=== PATIENT | male | born 1985 | race Native Hawaiian/Other Pacific Islander ===

== ENCOUNTER 2021-07-15 20:05 | Emergency (ER) | payer BC ==
[2021-07-15] MEDS ORDERED: IBUPROFEN 600 MG TAB PO STA (20:28)
[2021-07-15] MEDS ORDERED: ACETAMINOPHEN TAB 500 MG TAB PO STA (20:28)
--- NOTE | 2021-07-15 20:49 | ED ---
General Adult HPI - General Chief complaint: Fever Stated complaint: Fever 105, Body Achs Time Seen by Provider: 07/15/21 22:00 Source: patient, RN notes reviewed Mode of arrival: ambulatory - History of Present Illness Initial comments: Well-appearing 36-year-old male presents to the emergency room with complaints of body aches fevers, nausea. He has not been vaccinated against coronavirus. He has no medical history no medicines on a daily basis. He states his symptoms started today -: days(s) (1) Severity scale (1-10): 6 Quality: aching Associated Symptoms: fever/chills, malaise, nausea/vomiting, other (body aches) - Related Data Allergies Allergy/AdvReac Type Severity Reaction Status Date / Time No Known Allergies Allergy Verified 07/15/21 20:23 Review of Systems ROS Statement: Those systems with pertinent positive or pertinent negative responses have been documented in the HPI. ROS Other: All systems not noted in ROS Statement are negative. Past Medical History Past Medical History: No Reported History History of Any Multi-Drug Resistant Organisms: None Reported Past Surgical History: No Surgical Hx Reported Past Psychological History: No Psychological Hx Reported Smoking Status: Vaper Past Alcohol Use History: None Reported Past Drug Use History: None Reported General Exam General appearance: alert, in no apparent distress Head exam: Present: atraumatic, normocephalic, normal inspection Eye exam: Present: normal appearance, EOMI. Absent: scleral icterus, conjunctival injection ENT exam: Present: normal exam, normal oropharynx, mucous membranes moist Neck exam: Present: full ROM Respiratory exam: Present: normal lung sounds bilaterally. Absent: respiratory distress, wheezes, rales, rhonchi, stridor Cardiovascular Exam: Present: tachycardia Back exam: Present: normal inspection, full ROM. Absent: rash noted Neurological exam: Present: alert, oriented X3, normal gait Psychiatric exam: Present: normal affect, normal mood Skin exam: Present: warm, dry, normal color. Absent: cyanosis, diaphoretic Course Vital Signs 07/15/21 07/15/21 07/15/21 20:19 21:13 23:42 Temperature 103.2 F H 102.9 F H 99.7 F H Pulse Rate 131 H 121 H 100 Respiratory 18 20 Rate Blood Pressure 142/70 134/72 O2 Sat by Pulse 98 97 Oximetry Medical Decision Making - Medical Decision Making 36-year-old male presents with complaints of body aches fevers, nausea. He has not been vaccinated against coronavirus. He is positive for coronavirus today. He is febrile in the emergency of 103.2 with a heart rate of 131. He does meet criteria for monoclonal antibody infusion and is agreeable to the infusion. He tolerated the infusion without any difficulty. Patient was given Tylenol Motrin and IV fluids in the emergency room and is feeling better. Vital signs are improved. He was discharged home and directed to self quarantine for 10 days from symptom onset. Return to the emergency room for any new or worsening symptoms. My attending is Dr. Valera. - Lab Data Lab Results 07/15/21 Range/Units 20:24 Coronavirus (PCR) Detected A (Not Detectd) Disposition Clinical Impression: COVID-19 Disposition: HOME SELF-CARE Instructions (If sedation given, give patient instructions): Coronavirus Disease 2019 (COVID-19), Fever in Adults (ED) Additional Instructions: Take Tylenol and/or Motrin as needed for any body aches or fevers. Increase your fluid intake. You can take vitamin C, vitamin D and zinc to improve your immune health. Return to the emergency room with any new or concerning symptoms. Is patient prescribed a controlled substance at d/c from ED?: No Referrals: Mary Kay Guzman MD [Primary Care Provider] - 1-2 days
[2021-07-15] MEDS ORDERED: SODIUM CHLORIDE 0.9% 1,000 ML IV ONE (21:21)
[2021-07-15] MEDS ORDERED: SODIUM CHLORIDE 0.9% 50 ML IVPB ONE (22:00)
[2021-07-15] MEDS ORDERED: SOTROVIMAB (EUA) 500 MG in SODIUM CHLORIDE 0.9% 100 ML IVPB ONE (22:00)
[2021-07-15 23:43] VITALS: BP 134/72; PULSE 100; RESP 20; TEMP 99.7
== END 2021-07-15 23:43 | disposition home or self-care (01) ==
LOC: EC 20:05
DX: U07.1 COVID-19 (principal); F17.290 Nicotine dependence, other tobacco product, uncomplicated
CPT/HCPCS: 87635; 99283; Q0247

== ENCOUNTER 2022-09-30 13:25 | Emergency (ER) | payer BC ==
[2022-09-30 13:33] VITALS: RESP 18; TEMP 98
[2022-09-30] MEDS ORDERED: SODIUM CHLORIDE 0.9% 1,000 ML IV STA (13:38)
--- NOTE | 2022-09-30 13:40 | ED ---
Neuro HPI - General Chief Complaint: Neuro Symptoms/Deficit Stated Complaint: L Sided Numbness Time Seen by Provider: 09/30/22 13:29 Source: patient, old records reviewed Mode of arrival: EMS Limitations: no limitations - History of Present Illness Is the patient presenting with stroke symptoms?: Yes -: minutes(s) Initial Comments: This is a 37-year-old male to the emergency department for evaluation. Patient is a smoker with no other medical history takes no medications. Patient presents today for evaluation of left-sided numbness tingling weakness stability neurological findings of severe weakness. No prior history of similar. Symptoms were gradual then what appeared to be sudden onset and resolved on EMS transport. Patient currently has no complaints no headache chest pain or shortness of breath. Patient states he was sitting is cardiologically of left eye time and facial paresthesia weakness and numbness EMS was called and again they arrived, blood patient to the ER patient symptoms resolved upon arrival to the hospital patient also noted to have slurred speech Location: speech, left face, dysarthria History of same: Yes Place: work Severity: moderate Quality: weak, tingling Improves With: time Worsens With: none Context: gradual onset, sudden onset Associated Symptoms: denies other symptoms Treatments Prior to Arrival: none - Related Data Home Medications: Home Medications Medication Instructions Recorded Confirmed No Known Home Medications 09/30/22 09/30/22 Allergies/Adverse Reactions: Allergies Allergy/AdvReac Type Severity Reaction Status Date / Time No Known Allergies Allergy Verified 09/30/22 14:51 Review of Systems ROS Statement: Those systems with pertinent positive or pertinent negative responses have been documented in the HPI. ROS Other: All systems not noted in ROS Statement are negative. General Exam Limitations: no limitations Stroke MDM - Lab Data Result diagrams: 09/30/22 13:45 09/30/22 13:45 Lab Results 09/30/22 09/30/22 09/30/22 Range/Units 13:45 13:45 13:45 WBC 6.7 (3.8-10.6) k/uL RBC 5.22 (4.30-5.90) m/uL Hgb 14.9 (13.0-17.5) gm/dL Hct 44.4 (39.0-53.0) % MCV 84.9 (80.0-100.0) fL MCH 28.5 (25.0-35.0) pg MCHC 33.5 (31.0-37.0) g/dL RDW 12.3 (11.5-15.5) % Plt Count 231 (150-450) k/uL MPV 8.0 Neutrophils % 64 % Lymphocytes % 24 % Monocytes % 6 % Eosinophils % 3 % Basophils % 1 % Neutrophils # 4.3 (1.3-7.7) k/uL Lymphocytes # 1.6 (1.0-4.8) k/uL Monocytes # 0.4 (0-1.0) k/uL Eosinophils # 0.2 (0-0.7) k/uL Basophils # 0.0 (0-0.2) k/uL PT 10.4 (9.0-12.0) sec INR 1.0 (<1.2) APTT 22.7 (22.0-30.0) sec Sodium 139 (137-145) mmol/L Potassium 4.2 (3.5-5.1) mmol/L Chloride 101 (98-107) mmol/L Carbon Dioxide 29 (22-30) mmol/L Anion Gap 9 mmol/L BUN 17 (9-20) mg/dL Creatinine 0.88 (0.66-1.25) mg/dL Est GFR (CKD-EPI)AfAm >90 (>60 ml/min/1.73 sqM) Est GFR (CKD-EPI)NonAf >90 (>60 ml/min/1.73 sqM) Glucose 96 (74-99) mg/dL Calcium 9.1 (8.4-10.2) mg/dL Total Bilirubin 0.4 (0.2-1.3) mg/dL AST 41 (17-59) U/L ALT 61 H (4-49) U/L Alkaline Phosphatase 61 (38-126) U/L Creatine Kinase 294 H (55-170) U/L Troponin I (0.000-0.034) ng/mL Total Protein 7.6 (6.3-8.2) g/dL Albumin 4.3 (3.5-5.0) g/dL 09/30/22 Range/Units 13:45 WBC (3.8-10.6) k/uL RBC (4.30-5.90) m/uL Hgb (13.0-17.5) gm/dL Hct (39.0-53.0) % MCV (80.0-100.0) fL MCH (25.0-35.0) pg MCHC (31.0-37.0) g/dL RDW (11.5-15.5) % Plt Count (150-450) k/uL MPV Neutrophils % % Lymphocytes % % Monocytes % % Eosinophils % % Basophils % % Neutrophils # (1.3-7.7) k/uL Lymphocytes # (1.0-4.8) k/uL Monocytes # (0-1.0) k/uL Eosinophils # (0-0.7) k/uL Basophils # (0-0.2) k/uL PT (9.0-12.0) sec INR (<1.2) APTT (22.0-30.0) sec Sodium (137-145) mmol/L Potassium (3.5-5.1) mmol/L Chloride (98-107) mmol/L Carbon Dioxide (22-30) mmol/L Anion Gap mmol/L BUN (9-20) mg/dL Creatinine (0.66-1.25) mg/dL Est GFR (CKD-EPI)AfAm (>60 ml/min/1.73 sqM) Est GFR (CKD-EPI)NonAf (>60 ml/min/1.73 sqM) Glucose (74-99) mg/dL Calcium (8.4-10.2) mg/dL Total Bilirubin (0.2-1.3) mg/dL AST (17-59) U/L ALT (4-49) U/L Alkaline Phosphatase (38-126) U/L Creatine Kinase (55-170) U/L Troponin I <0.012 (0.000-0.034) ng/mL Total Protein (6.3-8.2) g/dL Albumin (3.5-5.0) g/dL - NIH Stroke Scale 1a. Level of Consciousness: (0) alert 1b. LOC Questions: (0) answers correctly 1c. LOC Commands: (0) performs tasks correctly 2. Best Gaze: (0) normal 3. Visual: (0) no visual loss 4. Facial Palsy: (0) normal symmetrical movement 5a. Motor Arm Left: (0) no drift 5b. Motor Arm Right: (0) no drift 6a. Motor Leg Left: (0) no drift 6b. Motor Leg Right: (0) no drift 7. Limb Ataxia: (0) absent 8. Sensory: (0) normal 9. Best Language: (0) no aphasia 10. Dysarthria: (0) normal 11. Extinction/Inattention: (0) no abnormality - Thrombolytic Inclusion/Exclusion Thrombolytic Exclusion Criteria: Onset of Symptoms Unknown (Symptoms resolved) Thrombolytic Inclusion Criteria: Symptom Onset < 4.5 h - Medical Decision Making 37 male to the emergency department for evaluation of neurological findings. Symptoms resolved upon arrival to ER remain resolved in the emergency room fitting TIA description. Patient will follow-up as an outpatient for further evaluation and treatment - Radiology Data Radiology results: report reviewed (CTA CTA had neck does show hypoplastic anterior segment), image reviewed - EKG Data -: EKG Interpreted by Me (EKG shows sinus 75 VA 108 QRS 116 QTC 441) Past Medical History Past Medical History: No Reported History History of Any Multi-Drug Resistant Organisms: None Reported Past Surgical History: No Surgical Hx Reported Additional Past Surgical History / Comment(s): Wisom teeth extraction, Past Psychological History: No Psychological Hx Reported Smoking Status: Current every day smoker, Vaper Past Alcohol Use History: Rare Past Drug Use History: None Reported Course Vital Signs 09/30/22 09/30/22 13:28 16:01 Temperature 98.0 F Pulse Rate 65 67 Respiratory 18 18 Rate Blood Pressure 132/82 122/82 O2 Sat by Pulse 100 99 Oximetry - Reevaluation(s) Reevaluation #1: 09/30/22 20:02 Medical records reviewed Reevaluation #2: 09/30/22 20:03 A she remains asymptomatic felt ER stay 09/30/22 20:03 Patient remains asymptomatic throughout ER stay Reevaluation #3: 09/30/22 20:03 Patient informed results and questions answered Reevaluation #4: 09/30/22 20:03 Was pt. sent in by a medical professional or institution? @ -no Did you speak to anyone other than the patient for history? @ -no Did you review nursing and triage notes? @ -agree Were old charts reviewed? @ -no Differential Diagnosis? @ -neuro deficit,ams EKG interpreted by me (3pts min.)? @ -yes X-rays interpreted by me (1pt min.)? @ -no CT interpreted by me (1pt min.)? @ -no U/S interpreted by me (1pt. min.)? @ -no What testing was considered but not performed? (CT, X-rays, U/S, labs)? Why? @ -no What meds were considered but not given? Why? @ -no Did you discuss the management of the patient with other professionals? @ -no Did you reconcile home meds? @ -yes Was smoking cessation discussed for >3mins.? @ -yes Was critical care preformed (if so, how long)? @ -no Were there social determinants of health that impacted care today? How? (Homelessness, low income, unemployed, alcoholism, drug addiction, transportation, low edu. Level, literacy, decrease access to med. care, shelter, rehab)? @ -no Was there de-escalation of care discussed even if they declined? (Discuss DNR or withdrawal of care, Hospice)? @ -no What co-morbidities impacted this encounter? (DM, HTN, Smoking, COPD, CAD, Cancer, CVA,, sleep apnea, morbid obesity) @ -no Was patient admitted / discharged? @ -dc Undiagnosed new problem with uncertain prognosis? @ -no Drug Therapy requiring intensive monitoring for toxicity (Heparin, Nitro, Insulin, Cardizem)? @ -no Were any procedures done? @ -no Diagnosis/symptom? @ -TIA,CVA Acute, or Chronic, or Acute on Chronic? @ -acute Uncomplicated (without systemic symptoms) or Complicated (systemic symptoms)? @ -uncomplicated Side effects of treatment? @ -no Exacerbation, Progression, or Severe Exacerbation] @ -no Poses a threat to life or bodily function? @ -no Reevaluation #5: 09/30/22 20:03 Differential Altered Mental Status: Hypoglycemia, DKA, hypercapnia, ETOH, overdose, CO poisoning, trauma, myxedema coma, HTN encephalopathy, infection, encephalitis, psychosis, intercranial hemorrhage, hepatic encephalopathy, meningitis, CVA, this is not meant to be an all-inclusive list Disposition Clinical Impression: Transient cerebral ischemia Disposition: HOME SELF-CARE Condition: Good Instructions (If sedation given, give patient instructions): Transient Ischemic Attack (ED) Is patient prescribed a controlled substance at d/c from ED?: No Referrals: Mary Kay Guzman MD [Primary Care Provider] - 1-2 days Time of Disposition: 15:30
[2022-09-30 14:11] LABS: Partial Thromboplastin Time 22.7 sec (22.0-30.0); Prothrombin Time 10.4 sec (9.0-12.0)
[2022-09-30 14:17] LABS: Basophils % (A) 1 %; Eosinophils # (A) 0.2 k/uL (0-0.7); Eosinophils % (A) 3 %; HCT 44.4 % (39.0-53.0); HGB 14.9 gm/dL (13.0-17.5); Lymphocytes # (A) 1.6 k/uL (1.0-4.8); Lymphocytes % (A) 24 %; MCH 28.5 pg (25.0-35.0); MCHC 33.5 g/dL (31.0-37.0); MCV 84.9 fL (80.0-100.0); Monocytes # (A) 0.4 k/uL (0-1.0); Monocytes % (A) 6 %; Neutrophils # (A) 4.3 k/uL (1.3-7.7); Neutrophils % (A) 64 %; Platelet Count 231 k/uL (150-450); RBC 5.22 m/uL (4.30-5.90); RDW 12.3 % (11.5-15.5); WBC 6.7 k/uL (3.8-10.6)
[2022-09-30 14:23] LABS: ALT 61 U/L (4-49); AST 41 U/L (17-59); African American GFR (CKD) >90 (>60 ml/min/1.73 sqM); Albumin 4.3 g/dL (3.5-5.0); Alkaline Phosphatase 61 U/L (38-126); Anion Gap 9 mmol/L; Blood Urea Nitrogen 17 mg/dL (9-20); Calcium 9.1 mg/dL (8.4-10.2); Carbon Dioxide 29 mmol/L (22-30); Chloride 101 mmol/L (98-107); Creatine Kinase 294 U/L (55-170); Glucose 96 mg/dL (74-99); Non-African American GFR(CKD) >90 (>60 ml/min/1.73 sqM); Potassium 4.2 mmol/L (3.5-5.1); Sodium 139 mmol/L (137-145); Total Bilirubin 0.4 mg/dL (0.2-1.3); Total Protein 7.6 g/dL (6.3-8.2)
--- NOTE | 2022-09-30 14:59 | CT ---
EXAMINATION TYPE: CT brain wo con, CT angio head neck DATE OF EXAM: 09/30/2022 COMPARISON: None HISTORY: 37-year-old male neurologic deficit, acute, stroke suspected, left-sided facial numbness TECHNIQUE: Examination was done in axial plane without intravenous contrast. Coronal and sagittal r econstructions performed. Additional postcontrast scanning of the head and neck after administration of 65 mL Isovue 370 IV contrast. 3-D reconstructions generated on a dedicated independent workstation . CT DLP: 2138.2 mGycm Automated exposure control for dose reduction was used. FINDINGS: CT head: There is no evidence of acute intracranial hemorrhage, acute ischemic changes, mass, mass-effect, or extra-axial fluid collection. There is no effacement of cerebral sulci or basal subarachnoid cister ns. There is no hydrocephalus. There is no midline shift. Rachel-white matter distinction is preserv ed. Paranasal sinuses and mastoid air cells are well pneumatized. Orbits and globes are intact. CTA neck: Calcified mediastinal left hilar nodes as well as a calcified granuloma in the left midlung compatibl e with prior granulomatous disease. Conventional arch vessel branching anatomy. Both vertebral arteries are codominant and patent throughout the course. Conventional arch also branching anatomy. The bilateral common and internal carotid arteries are widely patent. CT HEAD: Both vertebral and basilar arteries are patent as is the remainder of the posterior circulation. The internal carotid arteries are patent. There is a hypoplastic A1 segment left anterior cerebral ar alvin. However, otherwise, the anterior circulation is patent. Dural venous sinuses are patent. No aneurysmal changes seen. IMPRESSION: 1. CT head: No acute intracranial abnormality seen. 2. CTA neck: Evidence of prior granulomatous disease. Widely patent vertebral and carotid arteries of the neck. 3. 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 Otherwise, no large vessel intracranial arterial occlusion, significant stenosis, or aneurysmal change is seen.
[2022-09-30 16:02] VITALS: BP 122/82; PULSE 67
== END 2022-09-30 16:02 | disposition home or self-care (01) ==
LOC: EC 13:25
DX: G45.9 Transient cerebral ischemic attack, unspecified (principal); F17.290 Nicotine dependence, other tobacco product, uncomplicated
CPT/HCPCS: 36415; 93005; 80053; 82550; 84484; 85025; 85610; 85730; 70496; 70450; 70498; 99285; 96360; Q9967

== ENCOUNTER 2022-10-08 13:01 | Observation (INO) | payer BC ==
[2022-10-08] MEDS ORDERED: SODIUM CHLORIDE 0.9% 500 ML 500 ML IV STA (13:39)
--- NOTE | 2022-10-08 13:45 | ED ---
General Adult HPI - General Chief complaint: Neuro Symptoms/Deficit Stated complaint: Left arm tingling Time Seen by Provider: 10/08/22 13:28 Source: patient, EMS, RN notes reviewed, old records reviewed Mode of arrival: EMS Limitations: no limitations - History of Present Illness Initial comments: Patient is a 37-year-old male who was recently diagnosed with a TIA last week presents emergency department today with similar symptoms. Symptoms all reso lved prior to arrival. Last week patient had difficulty speaking as well as left-sided facial and arm numbness. States today the same thing happened at approximately 11:45 AM. He was at work when he began having left-sided facial as well as left hand and forearm numbness. States he does not believe it went all the way up his left arm. States it resulted Presents emergency department for evaluation. Denies any other deficits or weakness. Denies any past medical history. Is due to follow-up with neurology but was trying to get into see him sooner. Studies in the emergency department for evaluation instead. Has no other acute complaints at this time. No history of hypertension or diabetes. 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 no other findings. Patient was offered admission at that time but elected for follow-up with neurology instead. Is due to follow with Dr. Mcallister. - Related Data Home Medications Medication Instructions Recorded Confirmed No Known Home Medications 09/30/22 10/08/22 Allergies Allergy/AdvReac Type Severity Reaction Status Date / Time No Known Allergies Allergy Verified 10/08/22 15:16 Review of Systems ROS Statement: Those systems with pertinent positive or pertinent negative responses have been documented in the HPI. Review of Systems: CONST: Denies fever EYES: Denies blurry vision ENT: Denies nasal congestion C/V: Denies Chest pain RESP: Denies shortness of breath GI: Denies abdominal pain : Denies dysuria SKIN: Denies rash. MSK: Denies joint pain. NEURO: Denies headache ROS Other: All systems not noted in ROS Statement are negative. Past Medical History Past Medical History: No Reported History History of Any Multi-Drug Resistant Organisms: None Reported Past Surgical History: No Surgical Hx Reported Additional Past Surgical History / Comment(s): Wisom teeth extraction, Past Psychological History: No Psychological Hx Reported Smoking Status: Current every day smoker, Vaper Past Alcohol Use History: Rare General Exam - General Exam Comments Initial Comments: General: Appears in no acute distress. HEAD: Normal with no signs of head trauma. EYES: PERRLA, EOMI, conjunctiva normal, no discharge. Pupils are 3 mm and equal bilaterally. ENT: Hearing grossly intact, normal oropharynx. RESPIRATORY: Clear breath sounds bilaterally. No wheezes, rales, or rhonchi. C/V: Regular rate and rhythm. S1 and S2 auscultated, no edema, peripheral pulses 2+ and intact throughout ABD: Abd is soft, nontender, nondistended EXT: Normal range of motion, no obvious deformity SKIN: No rashes or lesions observed on exposed skin. NEURO: Alert and oriented x 4. Cranial nerves II-XII intact. No focal sensory or strength deficits. NIH of 0. GCS of 15. He relates without difficulty. No acute deficits. Symptoms resolved. Limitations: no limitations Course Vital Signs 10/08/22 13:04 Temperature 98.9 F Pulse Rate 87 Respiratory 22 Rate Blood Pressure 155/89 O2 Sat by Pulse 98 Oximetry Medical Decision Making - Medical Decision Making Was pt. sent in by a medical professional or institution (, PA, SOLAR ELECTRIC INSTALLER, urgent care, hospital, or [place] health care facility...) When possible be specific @ -No Did you speak to anyone other than the patient for history (EMS, parent, family, police, friend...)? What history was obtained from this source @ -No Did you review nursing and triage notes (agree or disagree)? Why? @ -I reviewed and agree with nursing and triage notes Were old charts reviewed (outside hosp., previous admission, EMS record, old EKG, old radiological studies, urgent care reports/EKG's, [place] health care facility records)? Report findings @ -Old charts reviewed from 09/30/2022 Differential Diagnosis (chest pain, altered mental status, abdominal pain women, abdominal pain men, vaginal bleeding, weakness, fever, dyspnea, syncope, headache, dizziness, GI bleed, back pain, seizure, CVA, palpatations, mental health, musculoskeletal)? @ -Differential CVA Ischemic stroke, hemorrhagic stroke, brain tumor, atypical migraine, Wernicke's encephalopathy, seizure, multiple sclerosis, meningitis, encephalitis, hypoglycemia, Guillain-Echeverria, electrolytes disturbance, myasthenia gravis.... This is not meant to be an all-inclusive list EKG interpreted by me (3pts min.). @ -As above X-rays interpreted by me (1pt min.). @ -Chest x-rays reveals no obvious acute cardio pulmonary process. CT interpreted by me (1pt min.). @ -CT brain and CT angiogram the brain reveals no obvious acute process, unchanged from prior. U/S interpreted by me (1pt. min.). @ -None done What testing was considered but not performed or refused? (CT, X-rays, U/S, labs)? Why? @ -None What meds were considered but not given or refused? Why? @ -None Did you discuss the management of the patient with other professionals (pr ofessionals i.e. , PA, SOLAR ELECTRIC INSTALLER, lab, RT, psych nurse, social research assistant, web development intern, teacher, sea air land officer, director case management)? Give summary @ -No Was smoking cessation discussed for >3mins.? @ -No Was critical care preformed (if so, how long)? @ -No Were there social determinants of health that impacted care today? How? (Homelessness, low income, unemployed, alcoholism, drug addiction, transport ation, low edu. Level, literacy, decrease access to med. care, senior living, rehab)? @ -No Was there de-escalation of care discussed even if they declined (Discuss DNR or withdrawal of care, Hospice)? DNR status @ -No What co-morbidities impacted this encounter? (DM, HTN, Smoking, COPD, CAD, Cancer, CVA, ARF, Chemo, Hep., AIDS, mental health diagnosis, sleep apnea, morbid obesity)? @ -Prior TIA last week Was patient admitted / discharged? Hospital course, mention meds given and route, prescriptions, significant lab abnormalities, going to OR and other pertinent info. @ -Based on the patient's presentation and physical exam, the patient presents with resolved neurological symptoms. Had similar symptoms last week. Symptoms have all resolved at the time of my evaluation. NIH is currently 0. Not on blood thinners. Patient is not a TPA candidate as risks far outweigh the benefits at this point. He is asymptomatic, Therefore stroke activation was not made. However I did discuss with him and we will work him up for his TIA including CT imaging of the brain and laboratory studies. He was in agreement this plan. Vital signs within acceptable limits. Patient's imaging unremarkable and unchanged from the other day. Patient's labs are within acceptable limits. I did update the patient. He remains asymptomatic. NIH remained 0. We did discuss discharge versus admission, and as the patient is returning with symptoms for the second time in one week and is unable to follow up with a neurologist in a timely manner, he elected for observation admission for evaluation by neurology. I believe this is reasonable. I spoke with the admitting physician, Dr. Davalos was in agreement this plan. Patient was given 325 milligrams of aspirin. Neurology was consulted. Undiagnosed new problem with uncertain prognosis? @ -No Drug Therapy requiring intensive monitoring for toxicity (Heparin, Nitro, I nsulin, Cardizem)? @ -No Were any procedures done? @ -No Diagnosis/symptom? @ -TIA Acute, or Chronic, or Acute on Chronic? @ -Acute Uncomplicated (without systemic symptoms) or Complicated (systemic symptoms)? @ -Uncomplicated Side effects of treatment? @ -none Exacerbation, Progression, or Severe Exacerbation] @ -no Poses a threat to life or bodily function? @ -no - Lab Data Result diagrams: 10/08/22 14:04 10/08/22 14:04 Lab Results 10/08/22 10/08/22 10/08/22 Range/Units 14:04 14:04 14:04 WBC 6.6 (3.8-10.6) k/uL RBC 5.46 (4.30-5.90) m/uL Hgb 15.8 (13.0-17.5) gm/dL Hct 46.0 (39.0-53.0) % MCV 84.2 (80.0-100.0) fL MCH 29.0 (25.0-35.0) pg MCHC 34.4 (31.0-37.0) g/dL RDW 12.5 (11.5-15.5) % Plt Count 118 L (150-450) k/uL MPV 9.2 Neutrophils % 77 % Lymphocytes % 16 % Monocytes % 5 % Eosinophils % 1 % Basophils % 0 % Neutrophils # 5.1 (1.3-7.7) k/uL Lymphocytes # 1.0 (1.0-4.8) k/uL Monocytes # 0.3 (0-1.0) k/uL Eosinophils # 0.1 (0-0.7) k/uL Basophils # 0.0 (0-0.2) k/uL PT 10.2 (9.0-12.0) sec INR 1.0 (<1.2) APTT 19.0 L (22.0-30.0) sec Sodium (137-145) mmol/L Potassium (3.5-5.1) mmol/L Chloride (98-107) mmol/L Carbon Dioxide (22-30) mmol/L Anion Gap mmol/L BUN (9-20) mg/dL Creatinine (0.66-1.25) mg/dL Est GFR (CKD-EPI)AfAm (>60 ml/min/1.73 sqM) Est GFR (CKD-EPI)NonAf (>60 ml/min/1.73 sqM) Glucose (74-99) mg/dL Calcium (8.4-10.2) mg/dL Total Bilirubin (0.2-1.3) mg/dL AST (17-59) U/L ALT (4-49) U/L Alkaline Phosphatase (38-126) U/L Troponin I (0.000-0.034) ng/mL Total Protein (6.3-8.2) g/dL Albumin (3.5-5.0) g/dL Urine Color Colorless Urine Appearance Clear (Clear) Urine pH 7.0 (5.0-8.0) Ur Specific Michael 1.015 (1.001-1.035) Urine Protein Negative (Negative) Urine Glucose (UA) Negative (Negative) Urine Ketones Negative (Negative) Urine Blood Negative (Negative) Urine Nitrite Negative (Negative) Urine Bilirubin Negative (Negative) Urine Urobilinogen <2.0 (<2.0) mg/dL Ur Leukocyte Esterase Negative (Negative) Urine Opiates Screen Not Detected (NotDetected) Ur Oxycodone Screen Not Detected (NotDetected) Urine Methadone Screen Not Detected (NotDetected) Ur Propoxyphene Screen Not Detected (NotDetected) Ur Barbiturates Screen Not Detected (NotDetected) U Tricyclic Antidepress Not Detected (NotDetected) Ur Phencyclidine Scrn Not Detected (NotDetected) Ur Amphetamines Screen Not Detected (NotDetected) U Methamphetamines Scrn Not Detected (NotDetected) U Benzodiazepines Scrn Not Detected (NotDetected) Urine Cocaine Screen Not Detected (NotDetected) U Marijuana (THC) Screen Not Detected (NotDetected) 10/08/22 10/08/22 Range/Units 14:04 14:04 WBC (3.8-10.6) k/uL RBC (4.30-5.90) m/uL Hgb (13.0-17.5) gm/dL Hct (39.0-53.0) % MCV (80.0-100.0) fL MCH (25.0-35.0) pg MCHC (31.0-37.0) g/dL RDW (11.5-15.5) % Plt Count (150-450) k/uL MPV Neutrophils % % Lymphocytes % % Monocytes % % Eosinophils % % Basophils % % Neutrophils # (1.3-7.7) k/uL Lymphocytes # (1.0-4.8) k/uL Monocytes # (0-1.0) k/uL Eosinophils # (0-0.7) k/uL Basophils # (0-0.2) k/uL PT (9.0-12.0) sec INR (<1.2) APTT (22.0-30.0) sec Sodium 139 (137-145) mmol/L Potassium 3.9 (3.5-5.1) mmol/L Chloride 102 (98-107) mmol/L Carbon Dioxide 26 (22-30) mmol/L Anion Gap 11 mmol/L BUN 14 (9-20) mg/dL Creatinine 0.84 (0.66-1.25) mg/dL Est GFR (CKD-EPI)AfAm >90 (>60 ml/min/1.73 sqM) Est GFR (CKD-EPI)NonAf >90 (>60 ml/min/1.73 sqM) Glucose 93 (74-99) mg/dL Calcium 9.2 (8.4-10.2) mg/dL Total Bilirubin 0.4 (0.2-1.3) mg/dL AST 34 (17-59) U/L ALT 40 (4-49) U/L Alkaline Phosphatase 73 (38-126) U/L Troponin I <0.012 (0.000-0.034) ng/mL Total Protein 7.9 (6.3-8.2) g/dL Albumin 4.5 (3.5-5.0) g/dL Urine Color Urine Appearance (Clear) Urine pH (5.0-8.0) Ur Specific Michael (1.001-1.035) Urine Protein (Negative) Urine Glucose (UA) (Negative) Urine Ketones (Negative) Urine Blood (Negative) Urine Nitrite (Negative) Urine Bilirubin (Negative) Urine Urobilinogen (<2.0) mg/dL Ur Leukocyte Esterase (Negative) Urine Opiates Screen (NotDetected) Ur Oxycodone Screen (NotDetected) Urine Methadone Screen (NotDetected) Ur Propoxyphene Screen (NotDetected) Ur Barbiturates Screen (NotDetected) U Tricyclic Antidepress (NotDetected) Ur Phencyclidine Scrn (NotDetected) Ur Amphetamines Screen (NotDetected) U Methamphetamines Scrn (NotDetected) U Benzodiazepines Scrn (NotDetected) Urine Cocaine Screen (NotDetected) U Marijuana (THC) Screen (NotDetected) - EKG Data -: EKG Interpreted by Me EKG Comments: 12-lead Electrocardiogram Interpretation Note EKG was reviewed and interpreted by myself. 12-lead ECG performed at 1312 is interpreted by me as revealing normal sinus rhythm at a rate of 74 beats per minute. [place] is normal. MS interval is 129 ms, QRS duration is 112 ms, QTc is 416 ms.. There were no ST or T wave abnormalities to suggest myocardial ischemia or injury. R wave progression across the precordium was satisfactory. By my interpretation this EKG is non-diagnostic for acute ischemia. When compared with EKG from 09/30/2022, no significant change. Disposition Clinical Impression: TIA (transient ischemic attack) Disposition: ADMITTED IP TO THIS HOSP Condition: Stable Referrals: Mary Kay Guzman MD [Primary Care Provider] - 1-2 days Hansa Chiang MD [REFERRING] - (Office has referral and will contact you regarding an appointment. Schedule out to the end of November or beginning of December at this time. ) Time of Disposition: 15:45
[2022-10-08 14:44] LABS: ALT 40 U/L (4-49); AST 34 U/L (17-59); African American GFR (CKD) >90 (>60 ml/min/1.73 sqM); Albumin 4.5 g/dL (3.5-5.0); Alkaline Phosphatase 73 U/L (38-126); Anion Gap 11 mmol/L; Blood Urea Nitrogen 14 mg/dL (9-20); Calcium 9.2 mg/dL (8.4-10.2); Carbon Dioxide 26 mmol/L (22-30); Chloride 102 mmol/L (98-107); Glucose 93 mg/dL (74-99); Non-African American GFR(CKD) >90 (>60 ml/min/1.73 sqM); Potassium 3.9 mmol/L (3.5-5.1); Sodium 139 mmol/L (137-145); Total Bilirubin 0.4 mg/dL (0.2-1.3); Total Protein 7.9 g/dL (6.3-8.2)
--- NOTE | 2022-10-08 15:01 | CT ---
EXAMINATION TYPE: CT brain wo con DATE OF EXAM: 10/08/2022 COMPARISON: CT brain September 30, 2022 HISTORY: left side numbness, neuro deficit, acute, stoke suspected CT DLP: 1186.6 mGycm. Automated Exposure Control for Dose Reduction was Utilized. TECHNIQUE: CT scan of the head is performed without contrast. FINDINGS: There is no acute intracranial hemorrhage, mass effect, or midline shift identified. The ventricles and sulci are within normal limits in size. Rachel-white matter differentiation is maintain ed . The globes are intact and the visualized sinuses are clear. IMPRESSION: No acute intracranial hemorrhage, mass effect, or midline shift is seen. No significant change from recent prior CT.
[2022-10-08 15:07] LABS: Basophils % (A) 0 %; Eosinophils # (A) 0.1 k/uL (0-0.7); Eosinophils % (A) 1 %; HGB 15.8 gm/dL (13.0-17.5); Lymphocytes % (A) 16 %; MCHC 34.4 g/dL (31.0-37.0); MCV 84.2 fL (80.0-100.0); Mean Platelet Volume 9.2; Monocytes # (A) 0.3 k/uL (0-1.0); Monocytes % (A) 5 %; Neutrophils # (A) 5.1 k/uL (1.3-7.7); Neutrophils % (A) 77 %; Platelet Count 118 k/uL (150-450); RBC 5.46 m/uL (4.30-5.90); RDW 12.5 % (11.5-15.5); WBC 6.6 k/uL (3.8-10.6)
[2022-10-08 15:09] LABS: Prothrombin Time 10.2 sec (9.0-12.0)
[2022-10-08 15:24] LABS: Appearance,Urine Clear (Clear); Bilirubin,Urine Negative (Negative); Blood,Urine Negative (Negative); Color,Urine Colorless; Glucose,Urine (UA) Negative (Negative); Ketones,Urine Negative (Negative); Leukocyte Esterase,Urine Negative (Negative); Nitrite,Urine Negative (Negative); Protein,Urine Negative (Negative); Specific Gravity,Urine 1.015 (1.001-1.035); Urobilinogen,Urine <2.0 mg/dL (<2.0)
[2022-10-08 15:42] LABS: Amphetamine Screen,Urine Not Detected (NotDetected); Barbiturate Screen,Urine Not Detected (NotDetected); Benzodiazepines Screen,Urine Not Detected (NotDetected); Cocaine Screen,Urine Not Detected (NotDetected); Methadone Screen, Urine Not Detected (NotDetected); Opiate Screen,Urine Not Detected (NotDetected); Oxycodone Screen, Urine Not Detected (NotDetected); Phencyclidine Screen,Urine Not Detected (NotDetected); Tricyclic Antidepressant,Urine Not Detected (NotDetected); Urn Cannabinoid Scrn Not Detected (NotDetected)
--- NOTE | 2022-10-08 15:43 | CT ---
EXAMINATION TYPE: CT angio head neck DATE OF EXAM: 10/08/2022 HISTORY: left side numbness, neuro deficit, acute, stoke suspected COMPARISON: CTA approximately [address] DLP: 1114.8 mGycm. Automated Exposure Control for Dose Reduction was Utilized. TECHNIQUE: CTA scan of the head and neck is performed with IV Contrast, patient injected with 100 mL of Isovue 300, axial images are obtained, coronal and sagittal reformatted images are reviewed. 3D r econstructed images are created on an independent workstation and reviewed. FINDINGS: Carotid/Vascular Structures: Normal 3 vessel origin from the aortic arch. No significant plaque or st enosis. No significant plaque or stenosis along the common or internal carotid arteries bilaterally i ncluding at the level of bilateral carotid bulbs. Patent external carotid arteries bilaterally withou t significant plaque or stenosis. There are codominant vertebral arteries patent to the basilar junction. There is no significant focal stenosis or aneurysm in the posterior circulation. There are hypoplastic bilateral posterior communi cating arteries. Images of the anterior circulation show absent left A1 segment with filling of the l eft A2 segment due to patent anterior communicating artery. No aneurysm is seen. No focal stenosis is noted. Other: Incidental peripheral calcified nodule or benign granuloma left upper lobe axial image 8. IMPRESSION: No significant abnormality is seen. No significant change from patient's recent CTA stud y. NASCET criteria was used in interpretation of this exam?
--- NOTE | 2022-10-08 15:50 | XR ---
EXAMINATION TYPE: XR chest 2V DATE OF EXAM: 10/08/2022 COMPARISON: None HISTORY: 37-year-old male confusion and mental status TECHNIQUE: PA and lateral views FINDINGS: Heart normal size. Aorta and pulmonary vasculature are within normal limits. No consolidation or pleu ral effusion. IMPRESSION: No acute cardiopulmonary process.
[2022-10-08] MEDS ORDERED: ASPIRIN 325 MG TAB PO STA (15:59)
[2022-10-09] MEDS: ASPIRIN 325 MG TAB PO SCH (09:04)
[2022-10-09 10:01] LABS: Chol/HDL Ratio 4.13 Ratio; LDL Cholesterol,Calculated 96.5 mg/dL (0.0-131.0)
--- NOTE | 2022-10-09 10:05 | P.CNNES ---
History of Present Illness Consult date: 10/09/22 Requesting physician: Ervin Amin Reason for Consult: Recurrent TIA History of Present Illness: Patient is a 37-year-old right-handed male came to the hospital by ambulance yesterday at 1:01 PM for recurrent TIA. Patient states that he had his first TIA on 09/30/2022. He was at work, sitting at the lunch, watching video on his cell phone when he suddenly noticed tingling of the left facial region that extended to the left arm, mouth and he couldn't talk. He repositioned himself and the symptoms started to go away. He was able to talk to the point that he could speak to the operated on 911. His symptoms lasted for about 3 minutes and went away. He was evaluated in [facility], blood pressure was 132/82, underwent computed tomography scan of the head, CTA of head and neck, which were normal. He was recommended to see a neurologist as an outpatient. He was fine until he has recurrence of symptoms yesterday. Patient states that he was sitting in the toilet, got up to wash hands when he noticed numbness and tingling of the left hand, and facial region, felt he couldn't move the left caba d. He could talk this time however. The bad symptoms lasted for about 2 minutes, however the symptoms reappeared mainly involving the left hand. He got concerned therefore called the ambulance. He believes the symptoms in the left hand lasted for about 30 minutes. He denies any mental confusion, history of seizures, or any problem with balance. Patient denies any headaches after these events. No history of migraines. As per EMS flow sheet, patient was alert and oriented 4 complaining of left hand tingling. Patient states he experienced a similar event last week and was recommended to see a neurologist. However he has not been able to get in yet. Symptoms started at 11:50 AM. Patient stroke scale was negative. Vitals at the scene was blood pressure 158/76, pulse rate 99 and respirations 18 and saturation 100% and blood sugar 99. Blood pressure on arrival was 155/89. Blood test shows normal CBC, PT/PTT, normal CMP, UA and a urine drug screen. EKG shows sinus rhythm. Chest x-ray showed no acute process. CT head showed no acute intracranial hemorrhage, mass effect or midline shift. I personally reviewed CT head, agree with the findings. CTA of head and neck was normal, no change from CTA from 1 week prior study. 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 He denies any history of trauma, or any injury. No history of seizures. No family history of epilepsy. His dad does have diabetes. Patient states that he has done cocaine, very occasionally, but has not done cocaine for a month. He smoked about 2 packs per day for a few years, quit in 2011. He has been vaping nicotine every day for last 2 years. Review of Systems Constitutional: Denies chills, Denies fever Eyes: denies blurred vision, denies pain Ears: deny: decreased hearing, ear discharge Ears, nose, mouth and throat: Denies headache, Denies sore throat Cardiovascular: Denies chest pain, Denies shortness of breath Respiratory: Denies cough, Denies excessive sputum Gastrointestinal: Denies abdominal pain, Denies diarrhea, Denies nausea, Denies vomiting Musculoskeletal: Denies low back pain, Denies myalgias Integumentary: Denies pruritus, Denies rash Neurological: Reports as per HPI Psychiatric: Denies anxiety, Denies depression Endocrine: Denies fatigue, Denies weight change Hematologic/Lymphatic: Denies easy bleeding, Denies easy bruising Past Medical History Past Medical History: No Reported History History of Any Multi-Drug Resistant Organisms: None Reported Past Surgical History: No Surgical Hx Reported Additional Past Surgical History / Comment(s): Wisom teeth extraction, Past Psychological History: No Psychological Hx Reported Smoking Status: Current every day smoker, Vaper Past Alcohol Use History: Rare Past Drug Use History: None Reported Medications and Allergies Home Medications Medication Instructions Recorded Confirmed Type No Known Home Medications 09/30/22 10/08/22 History Allergies Allergy/AdvReac Type Severity Reaction Status Date / Time No Known Allergies Allergy Verified 10/08/22 15:16 Physical Examination - Vital Signs Vital Signs: Vital Signs Temp Pulse Pulse Resp BP BP Pulse Ox 10/09/22 02:00 98.2 F 73 14 128/73 99 10/08/22 21:00 81 16 128/55 99 10/08/22 20:00 96.4 F L 88 57 L 16 139/71 130/78 98 10/08/22 18:58 76 18 139/82 97 10/08/22 18:00 123/78 10/08/22 17:00 71 18 134/73 97 10/08/22 16:45 78 20 127/82 97 10/08/22 16:15 66 20 127/76 98 10/08/22 16:00 75 18 119/94 99 10/08/22 15:45 85 20 147/96 95 10/08/22 15:30 78 24 137/97 99 10/08/22 15:15 67 18 127/81 97 10/08/22 15:00 72 20 99 10/08/22 14:45 76 20 100 10/08/22 14:30 77 18 100 10/08/22 14:15 73 18 123/89 99 10/08/22 14:00 72 20 140/92 99 10/08/22 13:45 84 18 138/89 98 10/08/22 13:30 83 18 142/94 99 10/08/22 13:15 80 18 142/79 99 10/08/22 13:13 142/79 99 10/08/22 13:04 98.9 F 87 22 155/89 98 Intake and Output 10/08/22 10/09/22 10/09/22 22:59 06:59 14:59 Other: Voiding Method Toilet # Voids 1 2 Weight 104.326 kg Patient is a young male, very pleasant in no acute distress. Patient is alert awake oriented to time place and person. Speech and language functions are normal. Patient can name and repeat very well. No aphasia or dysarthria. Attention, concentration and fund of knowledge is adequate. On cranial nerve examination, pupils are equal, round and reacting to light, visual youssef are full on confrontation, with no neglect on double simultaneous stimulation. Extraocular muscles are intact with no nystagmus. Face is symmetric, tongue protrudes to the midline. Palatal elevation and sensation normal, hearing and shoulder shrug normal, facial sensation normal. On muscle strength testing, there is no pronator drift and the strength is normal in arms and legs distally and proximally. Deep tendon reflexes are symmetric 1 on all over and plantars downgoing. Sensory to touch is equal with no neglect on double simultaneous stimulation. Cerebellar function showed no ataxia for [id number] testing. No dysdiadochokinesia. No ataxia for [id number] testing on either side. Tone and bulk of muscles normal. Gait deferred.. On general examination, there is no carotid bruit or murmur, S1-S2 audible. Chest is clear on consultation. Abdomen is soft nontender. No organomegaly, bowel sounds present. Peripheral pulses are present. No edema. Results - Laboratory Findings CBC and BMP: 10/08/22 14:04 10/08/22 14:04 Abnormal Lab Findings: Abnormal Labs 10/08/22 10/08/22 14:04 14:04 Plt Count 118 L APTT 19.0 L Assessment and Plan Assessment: * Recurrent TIA mainly involving the left facial brachial region. * High blood pressure reading, rule out hypertension * Vapes * Previous history of substance use Plan: * MRI of the brain to evaluate for acute stroke * 2-D echo with bubble study, rule out PFO. * Patient has recurrent spells, rule out seizure, check EEG. * Fasting lipid panel, hemoglobin A1c * Agree with starting aspirin 325 mg daily. * Telemetric monitoring, rule out arrhythmia. * Optimize control of blood pressure. * Neurology will follow. Thank you for the consult.
--- NOTE | 2022-10-09 10:55 | MR ---
EXAMINATION TYPE: MR brain wo con DATE OF EXAM: 10/09/2022 COMPARISON: NONE HISTORY: Left side weakness, neuro deficit, tia/cva TECHNIQUE: T1-weighted sagittal, T2, FLAIR, and diffusion axial, and T2 coronal coronal views of the brain are submitted. FINDINGS: There is no evidence of acute ischemia. The ventricles, basal cisterns, and sulci overlying the conv exities are consistent with the patient's age. There is no mass effect. Small intermediate signal s een adjacent to the clivus corresponds with CT osseous structure may represent small intraosseous hem angioma. Craniocervical junction maintained. Sella turcica has a normal appearance. A prominent cisterna magna noted. Mild changes of chronic sinusitis. Orbits are symmetric. No cerebellopontine angle mass. IMPRESSION: 1. No acute intracranial process.
[2022-10-09] MEDS: LOSARTAN 25 MG TAB PO SCH (12:18)
--- NOTE | 2022-10-09 17:35 | P.HPIM ---
History of Present Illness H&P Date: 10/09/22 Donnie Monroy, is a 37-year-old male who presented to [facility] emergency room with a chief complaint of tingling sensation on the left side of his face he also had difficulty speaking and numbness extending to the left upper extremity symptoms lasted about 3 minutes patient was able to call 911 and he was brought in to [facility] emergency room. Patient had similar episodes with similar symptoms on 09/30/2022 he was evaluated in the emergency room also at that time. He was evaluated in the emergency room vital examination on presentation revealed a temperature of 98.9 pulse 87 respiration 22 blood pressure 155/89 pulse ox 98% on room air Laboratory data revealed a white blood count of 6.6 hemoglobin 15.8 platelet count 118 sodium 139 potassium 3.9 chloride 102 CO2 26 BUN 14 creatinine 0.84 Testing in the emergency room revealed computed tomography scan of the brain done in the emergency room revealed no acute intracranial hemorrhage or mass affect or midline shift. CT angiogram of the head and neck was done in the emergency room and revealed no significant abnormality. Patient was admitted to medical floor for further evaluation and treatment. N eurology consultation was requested Past Medical History Past Medical History: No Reported History History of Any Multi-Drug Resistant Organisms: None Reported Past Surgical History: No Surgical Hx Reported Additional Past Surgical History / Comment(s): Wisom teeth extraction, Past Psychological History: No Psychological Hx Reported Smoking Status: Current every day smoker, Vaper Past Alcohol Use History: Rare Past Drug Use History: None Reported Medications and Allergies Home Medications Medication Instructions Recorded Confirmed Type No Known Home Medications 09/30/22 10/08/22 History Allergies Allergy/AdvReac Type Severity Reaction Status Date / Time No Known Allergies Allergy Verified 10/08/22 15:16 Physical Exam Vitals: Vital Signs Temp Pulse Pulse Resp BP BP Pulse Ox 10/09/22 02:00 98.2 F 73 14 128/73 99 10/08/22 21:00 81 16 128/55 99 10/08/22 20:00 96.4 F L 88 57 L 16 139/71 130/78 98 10/08/22 18:58 76 18 139/82 97 10/08/22 18:00 123/78 10/08/22 17:00 71 18 134/73 97 10/08/22 16:45 78 20 127/82 97 10/08/22 16:15 66 20 127/76 98 10/08/22 16:00 75 18 119/94 99 10/08/22 15:45 85 20 147/96 95 10/08/22 15:30 78 24 137/97 99 10/08/22 15:15 67 18 127/81 97 10/08/22 15:00 72 20 99 10/08/22 14:45 76 20 100 10/08/22 14:30 77 18 100 10/08/22 14:15 73 18 123/89 99 10/08/22 14:00 72 20 140/92 99 10/08/22 13:45 84 18 138/89 98 10/08/22 13:30 83 18 142/94 99 10/08/22 13:15 80 18 142/79 99 10/08/22 13:13 142/79 99 10/08/22 13:04 98.9 F 87 22 155/89 98 Intake and Output 10/08/22 10/09/22 10/09/22 22:59 06:59 14:59 Other: Voiding Method Toilet # Voids 1 2 Weight 104.326 kg In general patient is alert and oriented x 3 in no distress HEENT head normocephalic and atraumatic Neck is supple no JVD no goiter no lymphadenopathy no carotid bruit Chest examination is clear to auscultation no crackles no wheezing Cardiac exam reveals regular heart sounds S1 and S2 no gallops no murmurs Abdomen is soft nontender no organomegaly with normal bowel sounds Extremity exam reveals no edema no cyanosis or clubbing Neurological examination reveals no gross focal deficits Results CBC & Chem 7: 10/08/22 14:04 10/08/22 14:04 Labs: Abnormal Lab Results - Last 24 Hours (Table) 10/08/22 10/08/22 Range/Units 14:04 14:04 Plt Count 118 L (150-450) k/uL APTT 19.0 L (22.0-30.0) sec Assessment and Plan Plan: Recurrent episodes of left facial Evidence of hypertension Underlying history of tobacco abuse currently using tapes Previous history of substance abuse At this time patient is admitted to telemetry floor Echo cardiogram ordered Patient started on aspirin 325 mg daily Losartan 25 mg added to her medication regimen will monitor blood pressure closely Will check lipid profile Neurology consultation Will follow closely
[2022-10-09] MEDS ORDERED: ACETAMINOPHEN TAB 325 MG TAB PO PRN (21:38)
--- NOTE | 2022-10-09 23:08 | EEG ---
DATE OF SERVICE: 10/09/2022 ELECTROENCEPHALOGRAM REPORT PREAMBLE: This is a 37-year-old male with recurrent TIA, rule out focal seizures. EEG FINDINGS: This is a 21-channel digital EEG recorded with video component, utilizing 10/20 international system with referential and bipolar montages. Background consists of well developed, well regulated moderate voltage activity in 10 hertz alpha, which is posterior dominant and reactive to eye opening and closing. Hyperventilation revealed no abnormalities. Photic driving response was seen with some flash frequencies. Drowsiness was seen with presence of bilaterally symmetric theta frequency rhythm. Some stage 2 sleep was seen with the presence of sleep spindles and vertex waves. No focal or generalized epileptiform activity was seen. EKG channel showed no obvious arrhythmia. IMPRESSION: This is a normal EEG during wakefulness, drowsiness, and stage 2 sleep. No focal, lateralized or epileptiform activity was seen. MMODL / IJN: [id number] / MTDD
--- NOTE | 2022-10-10 07:20 | CA ---
Transthoracic Echo Report Name: Donnie Monroy Age: 37 Gender: M : 1985 Exam Date: 10/09/2022 13:18 Exam Location: [place] [facility] Ht (in): 73 Wt (lb): 235 Ordering Physician: Gaby Davalos MD Attending/Referring Phys: Manager Of Security Jarrell Ellis RDCS Procedure CPT: Indications: tia Cardiac Hx: Technical Quality: Fair Contrast 1: Total Dose (mL): Contrast 2: Total Dose (mL): MEASUREMENTS (Male / Female) Normal Values 2D ECHO LV Diastolic Diameter PLAX 4.7 cm 4.2 - 5.9 / 3.9 - 5.3 cm LV Systolic Diameter PLAX 3.2 cm LV Fractional Shortening PLAX 31.2 % IVS Diastolic Thickness 1.3 cm 0.6 - 1.0 / 0.6 - 0.9 cm IVS Systolic Thickness 1.6 cm LVPW Diastolic Thickness 1.4 cm 0.6 - 1.0 / 0.6 - 0.9 cm LVPW Systolic Thickness 1.7 cm LV Relative Wall Thickness 0.6 RV Internal Dim ED PLAX 3.0 cm LVOT Diameter 1.9 cm LA Systolic Diameter LX 4.3 cm 3.0 - 4.0 / 2.7 - 3.8 cm LV Diastolic Volume MOD BP 108.4 cm??? 67 - 155 / 56 - 104 cm??? LV Systolic Volume MOD BP 39.6 cm??? 22 - 58 / 19 - 49 cm??? LV Ejection Fraction MOD BP 63.4 % >= 55 % LV Stroke Volume MOD BP 68.7 cm??? LV Diastolic Volume MOD 4C 114.8 cm??? LV Systolic Volume MOD 4C 39.3 cm??? LV Ejection Fraction MOD 4C 65.7 % LV Stroke Volume MOD 4C 75.5 cm??? LV Diastolic Length 4C 8.4 cm LV Systolic Length 4C 7.0 cm LV Diastolic Volume MOD 2C 96.0 cm??? LV Systolic Volume MOD 2C 40.2 cm??? LV Ejection Fraction MOD 2C 58.1 % LV Stroke Volume MOD 2C 55.8 cm??? LV Diastolic Length 2C 7.8 cm LV Systolic Length 2C 6.8 cm Ascending Aorta Diameter 2.7 cm M-MODE Aortic Root Diameter MM 3.6 cm LA Systolic Diameter MM 3.5 cm LA Ao Ratio MM 1.0 MV E Point Septal Separation 0.6 cm AV Cusp Separation MM 1.9 cm DOPPLER AV Peak Velocity 119.8 cm/s AV Peak Gradient 5.7 mmHg MV Deceleration [place] 312.6 cm/s??? Mitral E Point Velocity 62.7 cm/s Mitral A Point Velocity 44.6 cm/s Mitral E to A Ratio 1.4 MV Deceleration Time 200.5 ms MV E' Velocity 8.4 cm/s Mitral E to MV E' Ratio 7.5 TR Peak Velocity 173.3 cm/s TR Peak Gradient 12.0 mmHg Right Ventricular Systolic Press 22.0 mmHg PV Peak Velocity 108.5 cm/s PV Peak Gradient 4.7 mmHg FINDINGS Left Ventricle Left ventricular ejection fraction is estimated at 55-60 %. Mild to moderate left ventricular hypertrophy. Left ventricular cavity size normal. Normal left ventricular diastolic filling pattern. Normal left ventricular wall motion. Right Ventricle Normal right ventricular size and function. Right Atrium Normal right atrial size. Left Atrium Mild left atrial dilatation. Mitral Valve Structurally normal mitral valve. No mitral stenosis. Trace mitral regurgitation. Aortic Valve Trileaflet aortic valve. No aortic stenosis. No aortic regurgitation. Tricuspid Valve Mild tricuspid regurgitation.structurally normal tricuspid valve. Pulmonic Valve Trace pulmonic regurgitation. Pericardium Normal pericardium. No pericardial effusion. Aorta Mild aortic dilatation at the level of the sinuses of valsalva (root). CONCLUSIONS 1. Normal ventricular size and systolic function 2. Mild tricuspid regurgitation with trace mitral regurgitation Previewed by: Dr. Jayson Cowart MD (Electronically Signed) Final Date: 10 Oct 2022 07:19
[2022-10-10 08:22] VITALS: BP 125/88; PULSE 71; RESP 16; TEMP 97.9
[2022-10-10] MEDS: LOSARTAN 25 MG TAB PO SCH (08:57)
[2022-10-10] MEDS: ASPIRIN 325 MG TAB PO SCH (08:57)
--- NOTE | 2022-10-10 10:51 | P.DS ---
Providers Date of admission: 10/08/22 15:59 Expected date of discharge: 10/10/22 Attending physician: Gaby Davalos Consults: 10/08/22 15:59 Consult Physician Routine Consulting Provider: Donna Fung Consult Reason/Comments: recurrent TIA Do you want consulting provider notified?: Yes Primary care physician: Mary Kay Guzman [facility] Course: Discharge diagnosis Recurrent episodes of left facial Evidence of hypertension Underlying history of tobacco abuse currently using tapes Previous history of substance abuse Hospital course Donnie Monroy, is a 37-year-old male who presented to [facility] emergency room with a chief complaint of tingling sensation on the left side of his face he also had difficulty speaking and numbness extending to the left upper extremity symptoms lasted about 3 minutes patient was able to call 911 and he was brought in to [facility] emergency room. Patient had similar episodes with similar symptoms on 09/30/2022 he was evaluated in the emergency room also at that time. He was evaluated in the emergency room vital examination on presentation revealed a temperature of 98.9 pulse 87 respiration 22 blood pressure 155/89 pulse ox 98% on room air Laboratory data revealed a white blood count of 6.6 hemoglobin 15.8 platelet count 118 sodium 139 potassium 3.9 chloride 102 CO2 26 BUN 14 creatinine 0.84 Testing in the emergency room revealed computed tomography scan of the brain done in the emergency room revealed no acute intracranial hemorrhage or mass affect or midline shift. CT angiogram of the head and neck was done in the emergency room and revealed no significant abnormality. Patient was admitted to medical floor for further evaluation and treatment. Neurology consultation was requested On 10/11/2019 and oriented 3. Patient is very eager to be DC'd home. Patient was evaluated by neurology services. Recommendation of starting aspirin 325 daily. Patient did have MRI of brain completed showing no acute intracranial process. 2-D echo completed showing normal ventricular size and systolic function EF 55-60%.EEG completed showing normal EEG. Current vital signs temp 97.9, heart rate 71, respiratory rate 16, blood pressure 135/80 with pulse. Patient was started on Cozaar for elevated blood pressure. Neurology to assess patient bedside prior to discharge. Nursing staff aware. Patient to follow-up PCP for further management Patient Condition at Discharge: Stable Plan - Discharge Summary New Discharge Prescriptions: New Aspirin 325 mg PO DAILY 30 Days #30 tab Losartan [Cozaar] 25 mg PO DAILY 30 Days #30 tab Discharge Medication List Aspirin 325 mg PO DAILY 30 Days #30 tab 10/10/22 [Rx] Losartan [Cozaar] 25 mg PO DAILY 30 Days #30 tab 10/10/22 [Rx] Follow up Appointment(s)/Referral(s): Mary Kay Guzman MD [Primary Care Provider] - 1-2 days Hansa Chiang MD [REFERRING] - (Office has referral and will contact you regarding an appointment. Schedule out to the end of November or beginning of December at this time. ) Activity/Diet/Wound Care/Special Instructions: Activity as tolerated Diet heart healthy Discharge Disposition: HOME SELF-CARE
[2022-10-10] MEDS ORDERED: ATORVASTATIN 20 MG TAB PO SCH (21:00)
--- NOTE | 2022-10-10 22:18 | P.PN ---
Subjective Progress Note Date: 10/10/22 Patient was seen for a follow-up. No symptoms. Feeling fine. Wants to go home. Objective - Vital Signs Vital signs: Vital Signs Temp 97.9 F 10/10/22 07:00 Pulse 71 10/10/22 07:00 Resp 16 10/10/22 07:00 BP 125/88 10/10/22 07:00 Pulse Ox 99 10/10/22 07:00 FiO2 Intake & Output 10/09/22 10/10/22 10/10/22 18:59 06:59 18:59 Intake Total 236 236 Balance 236 236 Intake: Oral 236 236 Other: Voiding Method Toilet # Voids 4 2 # Bowel Movements 1 - Exam Examination completely normal. - Labs CBC & Chem 7: 10/08/22 14:04 10/08/22 14:04 Assessment and Plan Assessment: * Recurrent TIA mainly involving the left facial brachial region. * Probable hypertension * Vapes * Previous history of substance use Plan: * MRI of the brain is normal. No acute process. No demyelinating disease, no acute CVA. I personally reviewed MRI, agree with the findings. * 2-D echo revealed normal left-ventricular size and systolic function. Mild TR. Left ventricular EF 55-60%. Mild to moderate LVH. Left atrium mildly dilated. * EEG normal. No epileptiform activity. * CTA head and neck normal. * Fasting lipid panel with cholesterol 174, LDL 96, HDL 42 and triglycerides 177. Patient to be started on Lipitor 20 mg daily. Paper prescription provided. * Hemoglobin A1c 5.6. * Agree with starting aspirin 325 mg daily. Patient suggested to stay on aspirin 325 mg for 6 weeks, then may switch to aspirin 81 mg. * Telemetric monitoring, showing no arrhythmia. * Optimize control of blood pressure. Patient started on losartan. * Neurologically clear for discharge. Patient will follow up with neurologist for any further management.
== END 2022-10-10 12:10 | disposition home or self-care (01) ==
LOC: EC 13:01 → 6NMEDSUR 15:59
PROVIDERS: ADMIT Internal Medicine; ATTEND Internal Medicine
DX: G45.8 Other transient cerebral ischemic attacks and related syndromes (principal); I10 Essential (primary) hypertension; Z87.891 Personal history of nicotine dependence; F17.290 Nicotine dependence, other tobacco product, uncomplicated; F19.11 Other psychoactive substance abuse, in remission
CPT/HCPCS: 96360; 99285; 36415; 95816; 93005; 93306; 97161; 80061; 80053; 84484; 85025; 85610; 85730; 81003; 80306; 83036; 71046; 70496; 70450; 70498; 70551; G0378 ×3; Q9967

== ENCOUNTER 2023-01-12 09:14 | Day surgery (SDC) | payer BC ==
[2023-01-06 11:28] VITALS: BMI 32.1
[2023-01-12] MEDS ORDERED: SODIUM CHLORIDE 0.9% 500 ML 500 ML IV ONE (09:30)
[2023-01-12 09:43] VITALS: TEMP 97.3
[2023-01-12] MEDS ORDERED: fentaNYL (PF) 50 MCG/ML 2 ML AMP ONE (10:18)
[2023-01-12] MEDS ORDERED: BENZOCAINE SPRAY 1 CAN TOPICAL ONE ×2 (10:27→10:39)
[2023-01-12] MEDS ORDERED: MIDAZOLAM 2 MG/2 ML VIAL IVP ONE ×3 (10:37→10:47)
[2023-01-12] MEDS ORDERED: fentaNYL (PF) 50 MCG/ML 2 ML AMP IVP ONE ×3 (10:38→10:51)
[2023-01-12 11:15] VITALS: RESP 16
[2023-01-12 14:03] VITALS: BP 114/61; PULSE 69
--- NOTE | 2023-01-12 14:43 | P.TEE ---
Description of Procedure(s): Procedure performed: Transesophageal Echocardiogram with color flow doppler, moderate conscious sedation Bubble study Moderate conscious sedation: Moderate conscious sedation was supplied with direct supervision of myself using 5mg Versed and 75 mcg Fentanyl. Patient's heart rate, ECG, pulse oximetry and blood pressure were monitored throughout the procedure. Patient did not include any complications. Total sedation time 30 minutes. Complications: none Indications: Recurrent TIA History: 37-year-old male with past medical history of recurrent TIA presented to the cardiology clinic to get evaluated for the etiology of TIA. For this he was recommended to undergo transesophageal echocardiogram. PROCEDURE: After the risks, benefits and alternatives of the above mentioned procedure was explained in detail with the patient, informed consent was obtained. Patient was brought to the lab in a fasting state. Patient was given IV Versed and Fentanyl for sedation. The throat was sprayed with Hurricane to anesthetize the throat. A lubricated Omni probe was then introduced into the esophagus and stomach and multiple views were obtained. 2D echo with color flow doppler, pulsed wave doppler and continuous wave doppler was utilized. Agitated saline bubbles were injected to assess for any intra-atrial shunt. The probe was then removed. Patient tolerated the procedure well. Patient was transferred to the post procedure area in stable and satisfactory condition. FINDINGS: 1. The aortic valve is [tricuspid and function normally]. 2. The mitral valve appears be normal with no significant regurgitation or stenosis . 3. The interatrial septum is aneurysmal. There is evidence of patent foraminal ovale by color Doppler. There is evidence of right to left shunt on bubble study. 4. Left atrial appendage is free of clot. 5. Left ventricular size and function [appear to be normal]
== END 2023-01-12 12:12 | disposition home or self-care (01) ==
LOC: CATHCVL 09:14
PROVIDERS: ATTEND Student in an Organized Health Care Education/Training Program
DX: G45.9 Transient cerebral ischemic attack, unspecified (principal); I10 Essential (primary) hypertension; E78.5 Hyperlipidemia, unspecified; Z79.82 Long term (current) use of aspirin; Z87.891 Personal history of nicotine dependence; Z79.899 Other long term (current) drug therapy
CPT/HCPCS: 93312; 93320; 93325; J2250; J3010

== ENCOUNTER → 2023-03-09 | Outpatient (CLI) | payer BC ==
[2023-03-09 21:31] LABS: Blood Urea Nitrogen 14.8 mg/dL (9.0-27.0); Carbon Dioxide 23.2 mmol/L (21.6-31.8); Chloride 104 mmol/L (96-109); Potassium 4.5 mmol/L (3.5-5.5); Sodium 139 mmol/L (135-145)
[2023-03-09 21:49] LABS: HCT 45.1 % (39.6-50.0); HGB 15.1 d/dL (13.0-17.0); MCH 28.7 pg (27.0-32.0); MCHC 33.5 d/dL (32.0-37.0); MCV 85.6 FL (80.0-97.0); Mean Platelet Volume 10.9 FL (9.5-12.2); NRBC Per 100 WBC 0 X 10*3/uL (0.00-0.01); Platelet Count 215 X 10*3/uL (140-440); RBC 5.27 X 10*6/uL (4.40-5.60); RDW 12.1 % (11.5-14.5)
== END | disposition home or self-care (01) ==
LOC: LABPAT 15:27
PROVIDERS: ATTEND Internal Medicine
DX: Z01.812 Encounter for preprocedural laboratory examination (principal); Q21.10 Atrial septal defect, unspecified
CPT/HCPCS: 36415; 80051; 82565; 84520; 85027

== ENCOUNTER 2023-03-12 10:30 | Inpatient (IN) | payer BC ==
[2023-03-06 10:41] VITALS: BMI 32.1
[~2023-03-12 10:30] MED LIST: ALPRAZolam 0.25 MG TAB PO PRN; ALPRAZolam 0.5 MG TAB PO PRN; ASPIRIN 325 MG TAB PO STA; ATORVASTATIN 80 MG TAB PO STA; HEPARIN SODIUM,PORCINE (1 ML) 2,500 UNIT in SODIUM CHLORIDE 0.9% 250 ML IRRIGATION PRN; HEPARIN SODIUM,PORCINE 10,000 UNIT in SODIUM CHLORIDE 0.9% 1,000 ML IRRIGATION PRN; NITROGLYCERIN SL TABS 0.4 MG TAB SUBLINGUAL PRN
[2023-03-12] MEDS ORDERED: fentaNYL (PF) 50 MCG/ML 2 ML AMP ONE (11:58)
[2023-03-12] MEDS ORDERED: HEPARIN SODIUM 1,000 UN/ML (10ML VL) ONE (11:58)
[2023-03-12] MEDS: HEPARIN SODIUM 1,000 UN/ML (10ML VL) IVP ONE ×5 (11:59→13:42)
[2023-03-12] MEDS: fentaNYL (PF) 50 MCG/ML 2 ML AMP IVP ONE ×3 (12:23→13:00)
[2023-03-12] MEDS ORDERED: MIDAZOLAM 2 MG/2 ML VIAL IVP ONE ×2 (12:23)
[2023-03-12] MEDS ORDERED: LIDOCAINE 1% INJ 10MG/ML (20 ML MDV) SQ ONE (12:23)
[2023-03-12] MEDS: MIDAZOLAM 2 MG/2 ML VIAL IVP ONE ×2 (12:32→13:00)
[2023-03-12] MEDS ORDERED: SODIUM CHLORIDE 0.9% 1,000 ML IV ONE ×2 (13:00→13:51)
[2023-03-12] MEDS ORDERED: ATROPINE SULFATE 0.1 MG/ML 10ML SYRINGE IVP ONE (13:03)
[2023-03-12] MEDS ORDERED: EPINEPHrine 10 ML SYRINGE (0.1 MG/ML) MISCELLANE ONE (13:05)
[2023-03-12] MEDS ORDERED: DEXTROSE 5% IN WATER 100 ML with AMIODARONE 150 MG IV ONE (13:13)
[2023-03-12] MEDS ORDERED: NOREPINEPHRINE 4 MG in SODIUM CHLORIDE 0.9% 250 ML IV ONE (13:24)
[2023-03-12] MEDS ORDERED: LIDOCAINE 1% INJ 10MG/ML (20 ML MDV) ONE (13:32)
[2023-03-12] MEDS ORDERED: IOPAMIDOL-370 100ML BTL INJ ONE (13:46)
[2023-03-12] MEDS ORDERED: AMIODARONE 360 MG in DEXTROSE 5% IN WATER 200 ML IV ONE ×2 (13:57)
--- NOTE | 2023-03-12 15:10 | P.OP ---
Description of Procedure: TRANSCATHETER CLOSURE OF INTERATRIAL COMMUNICATION PROCEDURES PERFORMED: 1. Closure of interatrial communication via a right femoral venous percutaneous approach using a 30mm Amplatzer Occluder device. 2. Intracardiac echocardiography using an 8-Botswanan AcuNav ultrasound catheter 3. RFV access under direct U/S visualization x 2 4. Right coronary angiography 5. TVP placement OPERATORS: 1. Neal Rai DO interventional cardiology INDICATIONS: History of thromboembolic CVA Interatrial communication/PFO with color flow across inter-atrial septum and positive bubble study by KATTY. SEDATION: Under my direct supervision the patient was administered moderate conscious sedation with Versed and Fentanyl for a total of 67 minutes. PRPOCEDURE SUMMARY: Prior to sedation, the risks, benefits and alternatives of the procedure were discussed with the patient in detail and all questions were answered to the patient's satisfaction. Both verbal and written consents were obtained. The patient was transported to the cardiac catheterization suite and prepped and draped in the usual sterile fashion for access to the right groin. The patient received conscious sedation in the form of Versed and Fentanyl intravenously. 2% lidocaine was infused into the right groin for local anesthesia. Then, under direct ultrasound visualization, right femoral vein was accessed using micropuncture technique and two 8-Botswanan 11 cm sheaths were placed into the right femoral vein. The 8-B[place]wan[place] AcuNav ICE ultrasound catheter was then adv anced through into the right atrium where intracardiac echocardiography was performed. PRE PROCEDURE ULTRASOUND: This demonstrated no evidence of pericardial effusion. It demonstrated normal appearing aortic and mitral valves. Overall the left ventricular function and chamber size appeared within normal limits. The LV function appeared preserved with no significant wall motion abnormalities. There was color flow visualized across the inter-atrial septum with ICE. There was an aneurysmal septum. The tricuspid valve appeared normal and the RV appeared normal in size. The visualized portions of the left atrium and left atrial appendage demonstrated no significant abnormalities. After images were obtained with the ICE catheter, a 6-Botswanan multipurpose catheter was inserted into the RFV and was used to cross the septum into the left atrium. Heparin was given to keep ACT > 200-250. The catheter was then advanced into the LA and placed in the L superior pulmonary vein. A 0.035 260 cm Bauer wire was then advanced via the catheter and placed in the vein. The catheter was then removed and the 8-Botswanan sheath was also removed over the Bauer wire. This was exchanged for a 11 B[place]an [id number] delivery sheath with introducer. This was advanced to the septal defect where the sheath was then advanced across the defect over the Amplatzer wire. The introducer was removed and blood was drawn. The Bauer wire was then removed. A 30mm Amplatzer PFO occluder device was then opened, prepped and then loaded into the sheath. Under fluoroscopy and ultrasound guidance, the Amplatzer occluder was advanced through the edge of the sheath. The left atrial side was deployed however initially there was some difficulty withdrawing the device and felt may be caught on something (although nothing visualized on ICE). Therefore the device was recaptured and withdrawn. The defect again was crossed and the Bauer wire placed in the LUPV. The sheath was advanced into the LA. The left atrial side was again deployed and was pulled back to the interatrial septum and the right atrial side was deployed. With the device still captured, intracardiac echocardiography was performed demonstrating good capture on all 6 rims with no impingement on valvular function. The delivery system was then released and removed. The final intracardiac echocardiographic images were again once obtained. Fairly soon after deployment of device, patient began having chest pain and EKG showed ST elevations inferiorly. Patient then developed bradycardia, heart block and was given Atropine. Bradycardia worsened and had sinus arrest and TVP was placed with capture and was additionally given Epinephrine secondary to patient becoming unresponsive. Patient's BP improved, came to with only approximately 30-60 seconds of down time. Additionally ST elevations had improved however was in Afib likely in part related to the epinephrine. There was suspicion of possible air embolism or microthrombus embolized and therefore decision was made to perform right coronary angiography. A 6-Botswanan sheath was placed in the right femoral artery. Using a 6-Botswanan FR4 catheter right coronary angiography was performed which showed no significant air embolus with normal flow. Patient was given amiodarone for his A. fib with RVR. He was still noted to be hypotensive and therefore given IV fluids and eventually placed on norepinephrine. ICE was repeated which showed no significant mechanical complications with no pericardial effusion. Right femoral angiography showed anatomy favorable for closure and therefore 6-Botswanan Angio-Seal was placed with hemostasis achieved. POST DELIVERY INTRACARDIAC ECHOCARDIOGRAPHIC IMAGES: This demonstrated again no evidence of pericardial effusion. All 6 rims were v isualized and demonstrated adequate purchase and the device in stable position. There was no further evidence of interatrial communication by color flow Doppler. The aortic and mitral valves appeared to be functioning appropriately with no impingement of flow. Again overall the left ventricular function appeared within normal limits and again, no effusion was noted. At this point, 8-Botswanan ICE catheter and the torque-view sheath was removed A Z stitch was placed to achieve hemostasis. The patient was transferred to the CVSU in stable condition. COMPLICATIONS: Transient ST elevations inferiorly felt likely related to air embolism vs thromboembolism from catheter Bradycardia and unresponsive episode related to inferior ST elevations Afib likely related to Epinephrine Hypotension, likely related to medication effect possible vagal response FINAL IMPRESSIONS: Successful closure of a PFO with a 30mm Amplatzer PFO occluder device. Complications of transient inferior ST elevations, bradycardia likely related to air embolism RECOMMENDATIONS: A limited transthoracic echocardiogram will be obtained. The patient will be transferred to ICU, monitoring overnight. Aspirin daily, Plavix 75 mg daily, followup in the clinic in approximately 1 week as previously scheduled. Antibiotic prophylaxis for any procedure for one year. Continue heparin drip and amiodarone for Afib however Afib likely related to Epinephrine. If still clinical suspicion of Afib, may consider loop recorder or repeat event monitor.
[2023-03-12 16:22] LABS: Glucose,Whole Blood 125 mg/dL (70-110)
[2023-03-12] MEDS: SODIUM CHLORIDE 0.9% 1,000 ML in EMPTY BAG 1 BAG IV SCH ×2 (16:28→16:34)
[2023-03-12] MEDS: SODIUM CHLORIDE 0.9% 1,000 ML IV SCH (16:33)
[2023-03-12] MEDS ORDERED: HEPARIN SOD,PORK IN 0.45% NACL 25,000 UNIT in 0.45% NACL 1 250ML.BAG IV SCH (17:15)
[2023-03-12] MEDS: HYDROcodone/APAP 5-325MG 1 EACH TAB PO PRN ×2 (17:45→21:05)
[2023-03-12 18:53] LABS: Basophils # (A) 0.1 k/uL (0-0.2); Basophils % (A) 1 %; Eosinophils # (A) 0.1 k/uL (0-0.7); Eosinophils % (A) 1 %; HGB 14.7 gm/dL (13.0-17.5); Hypochromasia Slight; Lymphocytes # (A) 1.7 k/uL (1.0-4.8); Lymphocytes % (A) 17 %; MCH 29.7 pg (25.0-35.0); MCV 92.7 fL (80.0-100.0); Mean Platelet Volume 7.7; Monocytes # (A) 0.5 k/uL (0-1.0); Monocytes % (A) 5 %; Neutrophils # (A) 7.6 k/uL (1.3-7.7); Neutrophils % (A) 76 %; Platelet Count 170 k/uL (150-450); RBC 4.96 m/uL (4.30-5.90); RDW 12.2 % (11.5-15.5); WBC 9.9 k/uL (3.8-10.6)
[2023-03-12 18:54] LABS: INR 1.1 (<1.2); Partial Thromboplastin Time 23.2 sec (22.0-30.0); Prothrombin Time 11.2 sec (9.0-12.0)
[2023-03-12 18:55] LABS: African American GFR (CKD) >90 (>60 ml/min/1.73 sqM); Anion Gap 10 mmol/L; Blood Urea Nitrogen 17 mg/dL (9-20); Calcium 8.4 mg/dL (8.4-10.2); Carbon Dioxide 20 mmol/L (22-30); Chloride 105 mmol/L (98-107); Glucose 177 mg/dL (74-99); Non-African American GFR(CKD) >90 (>60 ml/min/1.73 sqM); Potassium 3.9 mmol/L (3.5-5.1); Sodium 135 mmol/L (137-145)
[2023-03-12] MEDS: AMIODARONE 450 MG in DEXTROSE 5% IN WATER 250 ML IV SCH ×2 (21:54)
[2023-03-13] MEDS: HEPARIN SODIUM 1,000 UN/ML (10ML VL) IV PRN ×2 (02:03→08:49)
[2023-03-13] MEDS: SODIUM CHLORIDE 0.9% 1,000 ML IV SCH (06:28)
[2023-03-13] MEDS: SODIUM CHLORIDE 0.9% 1,000 ML in EMPTY BAG 1 BAG IV SCH ×2 (06:29→12:09)
--- NOTE | 2023-03-13 07:45 | XR ---
EXAMINATION TYPE: XR chest 2V DATE OF EXAM: 03/13/2023 COMPARISON: 10/08/2022 HISTORY: Chest pain TECHNIQUE: Frontal and lateral views of the chest are obtained. FINDINGS: There is no focal air space opacity. No evidence for pneumothorax. No pleural effusion. The cardiac silhouette size is within normal limits. The osseous structures are grossly intact. IMPRESSION: 1. No acute cardiopulmonary process.
[2023-03-13] MEDS: HYDROcodone/APAP 5-325MG 1 EACH TAB PO PRN ×2 (08:33→13:05)
[2023-03-13] MEDS ORDERED: ASPIRIN 325 MG TAB PO SCH (09:00)
[2023-03-13] MEDS ORDERED: CLOPIDOGREL 75 MG TAB PO SCH (09:00)
[2023-03-13] MEDS: AMIODARONE 450 MG in DEXTROSE 5% IN WATER 250 ML IV SCH ×2 (12:36)
[2023-03-13 18:01] VITALS: TEMP 99.2
[2023-03-13 19:41] VITALS: BP 122/72; PULSE 83; RESP 16
--- NOTE | 2023-03-13 22:22 | P.DS ---
Providers Date of admission: 03/12/23 15:33 Attending physician: Neal Rai DO Primary care physician: [facility] Course: Patient is a pleasant 37 year old male with history of PFO and TIA x 2 who presented for elective PFO closure. He underwent successful PFO closure on 03/12 from a right femoral approach however had complications of chest pain, inferior ST elevations immediately after placing the device and then heart block and bradycardia with loss of consciousness however still with a pulse. He recievied TVP from the venous approach and Epinephrine and quickly had return of consciousness and blood pressure predominantly improved however developed Afib thought related to Epinephrine given during bradycardia. Right coronary angiography was normal and felt possibly related to an air embolism. Patient remained mildly hypotensive and therefore Norepineprhine was given as well as Amiodarone given continued Afib and he was monitored in ICU. He converted to sinus rhythm at 3am after approximately 12 hrs of Afib and was briefly on a heparin drip during the Afib. His right femoral site was without significant hematoma, was off of any vasopressors and echo showed no significant abnormalities. He appeared stable for discharge home on aspirin and Plavix. Patient Condition at Discharge: Stable Plan - Discharge Summary Discharge Rx Participant: No New Discharge Prescriptions: Continue Clopidogrel [Plavix] 75 mg PO HS Atorvastatin [Lipitor] 20 mg PO HS Aspirin 325 mg PO DAILY Discontinued Losartan [Cozaar] 25 mg PO DAILY Discharge Medication List Aspirin 325 mg PO DAILY 01/12/23 [History] Atorvastatin [Lipitor] 20 mg PO HS 01/12/23 [History] Clopidogrel [Plavix] 75 mg PO HS 03/06/23 [History] Follow up Appointment(s)/Referral(s): Neal Rai DO [STAFF PHYSICIAN] - 1 Week (Patient states he has an appt on Thursday03/16/23.) Patient Instructions/Handouts: [facility] [employer] [place] (DC) Discharge Disposition: HOME SELF-CARE
--- NOTE | 2023-03-14 10:50 | CA ---
Transthoracic Echo Report Name: Donnie Monroy Age: 37 Gender: M : 1985 Exam Date: 03/13/2023 11:08 Exam Location: [facility] Ht (in): 71 Wt (lb): 228 Ordering Physician: Neal Rai DO ([email or web address]) Attending/Referring Phys: Education Director Margarita Back RDCS Procedure CPT: Indications: Post ASD/PFO Insertion Cardiac Hx: a fib Technical Quality: Good Contrast 1: Total Dose (mL): Contrast 2: Total Dose (mL): MEASUREMENTS (Male / Female) Normal Values 2D ECHO LV Diastolic Diameter PLAX 5.3 cm 4.2 - 5.9 / 3.9 - 5.3 cm LV Systolic Diameter PLAX 3.4 cm IVS Diastolic Thickness 1.2 cm 0.6 - 1.0 / 0.6 - 0.9 cm LVPW Diastolic Thickness 1.0 cm 0.6 - 1.0 / 0.6 - 0.9 cm LV Relative Wall Thickness 0.4 RV Internal Dim ED PLAX 3.0 cm LA Systolic Diameter LX 4.2 cm 3.0 - 4.0 / 2.7 - 3.8 cm LV Diastolic Volume MOD 4C 110.2 cm??? LV Systolic Volume MOD 4C 44.1 cm??? LV Ejection Fraction MOD 4C 60.0 % LV Cardiac Index MOD 4C 1776.9 cm???/min???m??? LV Diastolic Length 4C 8.8 cm LV Systolic Length 4C 7.0 cm LV Diastolic Volume MOD 2C 75.6 cm??? LV Systolic Volume MOD 2C 28.4 cm??? LV Ejection Fraction MOD 2C 62.4 % LV Cardiac Index MOD 2C 1267.7 cm???/min???m??? LV Diastolic Length 2C 8.4 cm LV Systolic Length 2C 7.3 cm LA Volume 59.9 cm??? 18 - 58 / 22 - 52 cm??? LA Volume Index 26.0 cm???/m??? 16 - 28 cm???/m??? M-MODE Aortic Root Diameter MM 3.8 cm MV E Point Septal Separation 0.4 cm AV Cusp Separation MM 2.8 cm FINDINGS Left Ventricle Left ventricular ejection fraction is estimated at 55-60 %. Left ventricular cavity size normal. Mildly increased septal wall thickness. Right Ventricle Normal right ventricular size. Unable to estimate the right ventricular systolic pressure. Right Atrium Normal right atrial size. Closure device in place . No PFO noted Left Atrium Mildly increased left atrial diameter. Mildly increased left atrial volume. Mildly increased left atrial area. Mitral Valve Structurally normal mitral valve. No mitral stenosis, regurgitation or prolapse. Aortic Valve Trileaflet aortic valve. No aortic valve stenosis or regurgitation. Tricuspid Valve Structurally normal tricuspid valve. No tricuspid stenosis, regurgitation or prolapse. Pulmonic Valve Structurally normal pulmonic valve. No pulmonic regurgitation. Pericardium No pericardial effusion. Aorta Mildly dilated aortic annulus. CONCLUSIONS Normal LV systolic function Atrial closure device noted No pericardial effusion Previewed by: Dr. Som Manuel MD (Electronically Signed) Final Date: 14 March 2023 10:50
== END 2023-03-13 18:58 | disposition home or self-care (01) | DRG 228 ==
LOC: CATHCVL 10:30 → 2SICU 13:20 → CATHCVL 15:11 → 2SICU 15:33 → OBSVTOIN 15:33
PROVIDERS: ADMIT Internal Medicine; ATTEND Internal Medicine
PROC: 02U Heart and Great Vessels, Supplement (ICD-10-PCS; principal; 2023-03-12 12:00)
PROC: B2101ZZ Fluoroscopy of Single Coronary Artery using Low Osmolar Contrast (ICD-10-PCS; 2023-03-12 12:00)
DX: Q21.12 Patent foramen ovale (principal); I21.A9 Other myocardial infarction type; I97.790 Other intraoperative cardiac functional disturbances during cardiac surgery; I48.91 Unspecified atrial fibrillation; R00.1 Bradycardia, unspecified; I95.9 Hypotension, unspecified; I45.9 Conduction disorder, unspecified; T44.5X5A Adverse effect of predominantly beta-adrenoreceptor agonists, initial encounter; Z79.82 Long term (current) use of aspirin; Z79.02 Long term (current) use of antithrombotics/antiplatelets; Z86.73 Personal history of transient ischemic attack (TIA), and cerebral infarction without residual deficits
CPT/HCPCS: 71046; 80048; 85025; 85610; 85730; 86850; 86900; 86901; 93306; 93454; 93580; 93662

== ENCOUNTER → 2023-06-22 | Outpatient (CLI) | payer BC ==
--- NOTE | 2023-06-22 15:32 | US ---
EXAMINATION TYPE: US scrotum with doppler. TECHNIQUE: Grayscale and color Doppler Duplex imaging performed of the scrotum. DATE OF EXAM: 06/22/2023 COMPARISON: NONE CLINICAL INDICATION: Male, 38 years old with history of R22.9 N44.8 OTHER NONINFLAMMATORY DISORDERS O N50.8; Recent Lump on left testicle; Patient denies any other signs or symptoms or relevant history EXAM MEASUREMENTS: TESTICLES: Right Testicle: 4.3 x 2.3 x 3.1 cm Left Testicle: 3.4 x 2.6 x 3.0 cm EPIDIDYMIS HEAD: Right Epididymis: 1.6 x 1.4 x 1.4 cm Left Epididymis: 4.1 x 2.9 x 3.9 cm. Presentation Team Member notes: Left epididymal head replaced by a multilocu lar cystic lesion measuring up to 4.1 cm. The septations show some internal vascularity. Doppler performed to assess for testicular vascularity; good bilateral color flow and waveforms are s een. There is no evidence of testicular torsion. Presence of hydroceles: no Presence of varicoceles: no IMPRESSION: 1. In the region of the left epididymal head, there is a multilocular cystic lesion measuring up to 4 .1 cm. Some vascularity along the areas of internal septation. Unclear if this represents a complex h ydrocele/infectious etiology or a cystic mass such as a cystadenoma of the epididymis. Recommend furt her urology evaluation. 2. No testicular mass or sonographic evidence for testicular torsion.
== END | disposition home or self-care (01) ==
LOC: RADUSWWP 14:50
PROVIDERS: ATTEND Family Medicine
DX: N50.89 Other specified disorders of the male genital organs (principal); N44.8 Other noninflammatory disorders of the testis; R22.9 Localized swelling, mass and lump, unspecified
CPT/HCPCS: 76870; 93975

== ENCOUNTER → 2023-10-05 | Outpatient (CLI) | payer BC ==
--- NOTE | 2023-10-05 17:59 | US ---
EXAMINATION TYPE: US scrotum with doppler. Grayscale and color Doppler Duplex imaging performed of t he scrotum. DATE OF EXAM: 10/05/2023 COMPARISON: US 06/22/2023 CLINICAL INDICATION: , 38 years old with history of N50.3 CYST OF EPIDIDYMIS; Evaluation for surgical consult EXAM MEASUREMENTS: TESTICLES: Right Testicle: 4.2 x 1.9 x 2.8 cm Left Testicle: 3.7 x 2.1 x 3.4 cm EPIDIDYMIS HEAD: Right Epididymis: 1.6 x 2.0 x 1.3 cm Left Epididymis: 5.6 x 2.6 x 4.7 cm Doppler performed to assess for testicular vascularity; good bilateral color flow and waveforms are s een. There is no evidence of testicular torsion. Presence of hydroceles: No Presence of varicoceles: Bilateral Multicystic area in the area of the left epididymus previously measure = 4.1 x 2.9 x 3.9 cm. ? Appear s the same IMPRESSION: Complex cystic structure in the left epididymis with thin septations possibly representing complex hy drocele and/or cystic neoplasm. This is not significantly changed from 06/22/2023. Given differences i n measuring technique, continued surveillance recommended
== END | disposition home or self-care (01) ==
LOC: RADUSWWP 15:20
PROVIDERS: ATTEND Urology
DX: N50.3 Cyst of epididymis (principal)
CPT/HCPCS: 76870; 93975

== ENCOUNTER → 2024-04-21 | Outpatient (CLI) | payer BC ==
--- NOTE | 2024-04-21 17:32 | US ---
EXAMINATION TYPE: US scrotum with doppler. DATE OF EXAM: 04/21/2024 COMPARISON: US 10/05/2023 CLINICAL INDICATION: Male, 38 years old with history of N50.89 OTHER SPECIFIED DISORDERS OF THE MALE GENIT; Swelling TECHNIQUE: Grayscale, color Doppler and spectral Doppler imaging of the scrotum. FINDINGS: EXAM MEASUREMENTS: TESTICLES: Right Testicle: 4.2x1.8x3.2 cm Left Testicle: 3.7x2.1x2.9 cm EPIDIDYMIS HEAD: Right Epididymis: 1.5x0.9x0.8 cm Complex area seen adjacent to Epi head: 1.0x1.1x0.9cm Left Epididymis: Not seen with certainty. Complex area seen in epi head area: 5.8x2.34.4cm Doppler performed to assess for testicular vascularity; bilateral color flow and spectral waveforms are seen. Presence of hydroceles: no Presence of varicoceles: prominent vessels seen bilaterally largest RT:0.3cm largest LT:0.3cm IMPRESSION: 1. Large cystic structures in the expected region of the left epididymal head. Vascular flow is not i dentified. 2. Varicoceles are present bilaterally. 3. Complex epididymal cyst within the right epididymal head. [facility], , 04/21/2024 5:29 PM
== END | disposition home or self-care (01) ==
LOC: RADUSWWP 16:27
PROVIDERS: ATTEND Urology
DX: N50.89 Other specified disorders of the male genital organs (principal); I86.1 Scrotal varices; N50.3 Cyst of epididymis
CPT/HCPCS: 76870; 93975

== ENCOUNTER 2024-08-01 12:33 | Emergency (ER) | payer BC ==
[2024-08-01 12:39] VITALS: TEMP 98.4
[2024-08-01 13:15] LABS: Basophils % (A) 0 %; Eosinophils % (A) 0 %; HCT 46.9 % (39.0-53.0); HGB 15.1 gm/dL (13.0-17.5); Lymphocytes # (A) 0.9 k/uL (1.0-4.8); Lymphocytes % (A) 21 %; MCH 27.8 pg (25.0-35.0); MCHC 32.3 g/dL (31.0-37.0); MCV 86.1 fL (80.0-100.0); Mean Platelet Volume 7.8; Monocytes # (A) 0.4 k/uL (0-1.0); Monocytes % (A) 8 %; Neutrophils # (A) 2.9 k/uL (1.3-7.7); Neutrophils % (A) 67 %; Platelet Count 192 k/uL (150-450); RBC 5.44 m/uL (4.30-5.90); RDW 12.2 % (11.5-15.5); WBC 4.4 k/uL (3.8-10.6)
[2024-08-01 13:34] LABS: INR 1.1 (<1.2); Prothrombin Time 11.6 sec (10.0-12.5)
[2024-08-01 13:39] LABS: ALT 34 U/L (4-49); AST 46 U/L (17-59); African American GFR (CKD) >90 (>60 ml/min/1.73 sqM); Albumin 4.7 g/dL (3.5-5.0); Alkaline Phosphatase 62 U/L (38-126); Amylase 77 U/L (30-110); Anion Gap 13 mmol/L; Blood Urea Nitrogen 21 mg/dL (9-20); Calcium 9.3 mg/dL (8.4-10.2); Carbon Dioxide 24 mmol/L (22-30); Chloride 96 mmol/L (98-107); Glucose 93 mg/dL (74-99); Lipase 337 U/L (23-300); Non-African American GFR(CKD) 86 (>60 ml/min/1.73 sqM); Potassium 4.2 mmol/L (3.5-5.1); Sodium 133 mmol/L (137-145); Total Bilirubin 0.8 mg/dL (0.2-1.3); Total Protein 7.9 g/dL (6.3-8.2)
--- NOTE | 2024-08-01 14:57 | ED ---
Abdominal Pain HPI - General Chief Complaint: Abdominal Pain Stated Complaint: abd pain, blk stool Time Seen by Provider: 08/01/24 12:48 Source: patient, RN notes reviewed Mode of arrival: ambulatory Limitations: no limitations - History of Present Illness MD Complaint: abdominal pain Onset/Timin -: days(s) Location: periumbilical Radiation: none Migration to: no migration Severity scale (1-10): 5 Quality: cramping Consistency: intermittent Improves With: nothing Worsens With: nothing Associated Symptoms: melena - Related Data Home Medications Medication Instructions Recorded Confirmed Aspirin 325 mg PO DAILY 01/12/23 03/12/23 Atorvastatin [Lipitor] 20 mg PO HS 01/12/23 03/12/23 Clopidogrel [Plavix] 75 mg PO HS 03/06/23 03/12/23 Previous Rx's Medication Instructions Recorded Famotidine [Pepcid] 20 mg PO BID #40 tablet 08/01/24 Pantoprazole [Protonix] 40 mg PO DAILY #20 tab 08/01/24 Allergies Allergy/AdvReac Type Severity Reaction Status Date / Time No Known Allergies Allergy Verified 03/12/23 11:29 Review of Systems ROS Statement: Those systems with pertinent positive or pertinent negative responses have been documented in the HPI. ROS Other: All systems not noted in ROS Statement are negative. Past Medical History Past Medical History: CVA/TIA Additional Past Medical History / Comment(s): TIA X2 (September 2022) History of Any Multi-Drug Resistant Organisms: None Reported Past Surgical History: No Surgical Hx Reported Additional Past Surgical History / Comment(s): [place] teeth extracted. PFO closure. KATTY Past Anesthesia/Blood Transfusion Reactions: No Reported Reaction Additional Past Anesthesia/Blood Transfusion Reaction / Comment(s): PT TOOK A LONG TIME TO FALL ASLEEP DURING KATTY Past Psychological History: No Psychological Hx Reported Smoking Status: Vaper - Past Family History Mother Family Medical History: No Reported History General Exam Limitations: no limitations General appearance: alert, in no apparent distress Head exam: Present: atraumatic, normocephalic, normal inspection Eye exam: Present: normal appearance, PERRL, EOMI. Absent: scleral icterus, conjunctival injection, periorbital swelling ENT exam: Present: normal exam, mucous membranes moist Neck exam: Present: normal inspection. Absent: tenderness, meningismus, lymphadenopathy Respiratory exam: Present: normal lung sounds bilaterally. Absent: respiratory distress, wheezes, rales, rhonchi, stridor Cardiovascular Exam: Present: regular rate, normal rhythm, normal heart sounds. Absent: systolic murmur, diastolic murmur, rubs, gallop, clicks GI/Abdominal exam: Present: soft, normal bowel sounds. Absent: distended, tenderness, guarding, rebound, rigid Rectal exam: Present: normal inspection, normal rectal tone, heme (+) stool, black stool. Absent: fecal impaction, hemorrhoids Extremities exam: Present: normal inspection, full ROM, normal capillary refill. Absent: tenderness, pedal edema, joint swelling, calf tenderness Back exam: Present: normal inspection Neurological exam: Present: alert, oriented X3, CN II-XII intact Psychiatric exam: Present: normal affect, normal mood Skin exam: Present: warm, dry, intact, normal color. Absent: rash Course Vital Signs 08/01/24 12:37 Temperature 98.4 F Pulse Rate 93 Respiratory 20 Rate Blood Pressure 139/94 O2 Sat by Pulse 99 Oximetry Medical Decision Making - Medical Decision Making Was pt. sent in by a medical professional or institution (, PA, TAKE AWAY ATTENDANT, urgent care, hospital, or longterm...) When possible be specific @ -[No] Did you speak to anyone other than the patient for history (EMS, parent, family, police, friend...)? What history was obtained from this source @ -[No] Did you review nursing and triage notes (agree or disagree)? Why? @ -[I reviewed and agree with nursing and triage notes] Were old charts reviewed (outside hosp., previous admission, EMS record, old EKG, old radiological studies, urgent care reports/EKG's, longterm records)? Report findings @ -[No old charts were reviewed] Differential Diagnosis (chest pain, altered mental status, abdominal pain women, abdominal pain men, vaginal bleeding, weakness, fever, dyspnea, syncope, headache, dizziness, GI bleed, back pain, seizure, CVA, palpatations, mental health, musculoskeletal)? @ -Differential GI Bleed: Esophageal varices, aortoenteric fistula, [place]-Ruiz, gastritis, peptic ulcer disease, diverticulosis, inflammatory bowel disease, hemorrhoids, fissure, colitis, malignancy, Meckel's diverticulum, this is not meant to be an all- inclusive list. EKG interpreted by me (3pts min.). @ -Not done X-rays interpreted by me (1pt min.). @ -[None done] CT interpreted by me (1pt min.). @ -[None done] U/S interpreted by me (1pt. min.). @ -[None done] What testing was considered but not performed or refused? (CT, X-rays, U/S, la bs)? Why? @ -[None] What meds were considered but not given or refused? Why? @ -[None] Did you discuss the management of the patient with other professionals (professionals i.e. Dr., PA, TAKE AWAY ATTENDANT, lab, RT, psych nurse, social staff worker, auto body technician, teacher, correction officer reformatory, dependency case manager)? Give summary @ -[No] Was smoking cessation discussed for >3mins.? @ -[No] Was critical care preformed (if so, how long)? @ -[No] Were there social determinants of health that impacted care today? How? (Homelessness, low income, unemployed, alcoholism, drug addiction, transportation, low edu. Level, literacy, decrease access to med. care, usp, rehab)? @ -[No] Was there de-escalation of care discussed even if they declined (Discuss DNR or withdrawal of care, Hospice)? DNR status @ -[No] What co-morbidities impacted this encounter? (DM, HTN, Smoking, COPD, CAD, Cancer, CVA, ARF, Chemo, Hep., AIDS, mental health diagnosis, sleep apnea, morbid obesity)? @ -[None] Was patient admitted / discharged? Hospital course, mention meds given and route, prescriptions, significant lab abnormalities, going to OR and other pertinent info. @ -[hospital course] Undiagnosed new problem with uncertain prognosis? @ -[No] Drug Therapy requiring intensive monitoring for toxicity (Heparin, Nitro, Insulin, Cardizem)? @ -[No] Were any procedures done? @ -[No] Diagnosis/symptom? @ -[default] Acute, or Chronic, or Acute on Chronic? @ -Acute Uncomplicated (without systemic symptoms) or Complicated (systemic symptoms)? @ -Uncomplicated Side effects of treatment? @ -[No] Exacerbation, Progression, or Severe Exacerbation? @ -[No] Poses a threat to life or bodily function? How? (Chest pain, [place], MT, pneumonia, PE, COPD, DKA, ARF, appy, cholecystitis, CVA, Diverticulitis, Homicidal, Suicidal, threat to staff... and all critical care pts) @ -[No] - Lab Data Result diagrams: 08/01/24 12:40 08/01/24 12:40 Lab Results 08/01/24 08/01/24 08/01/24 Range/Units 12:40 12:40 12:40 WBC 4.4 (3.8-10.6) k/uL RBC 5.44 (4.30-5.90) m/uL Hgb 15.1 (13.0-17.5) gm/dL Hct 46.9 (39.0-53.0) % MCV 86.1 (80.0-100.0) fL MCH 27.8 (25.0-35.0) pg MCHC 32.3 (31.0-37.0) g/dL RDW 12.2 (11.5-15.5) % Plt Count 192 (150-450) k/uL MPV 7.8 Neutrophils % 67 % Lymphocytes % 21 % Monocytes % 8 % Eosinophils % 0 % Basophils % 0 % Neutrophils # 2.9 (1.3-7.7) k/uL Lymphocytes # 0.9 L (1.0-4.8) k/uL Monocytes # 0.4 (0-1.0) k/uL Eosinophils # 0.0 (0-0.7) k/uL Basophils # 0.0 (0-0.2) k/uL PT 11.6 (10.0-12.5) sec INR 1.1 (<1.2) APTT 26.0 (22.0-30.0) sec Sodium 133 L (137-145) mmol/L Potassium 4.2 (3.5-5.1) mmol/L Chloride 96 L (98-107) mmol/L Carbon Dioxide 24 (22-30) mmol/L Anion Gap 13 mmol/L BUN 21 H (9-20) mg/dL Creatinine 1.09 (0.66-1.25) mg/dL Est GFR (CKD-EPI)AfAm >90 (>60 ml/min/1.73 sqM) Est GFR (CKD-EPI)NonAf 86 (>60 ml/min/1.73 sqM) Glucose 93 (74-99) mg/dL Calcium 9.3 (8.4-10.2) mg/dL Total Bilirubin 0.8 (0.2-1.3) mg/dL AST 46 (17-59) U/L ALT 34 (4-49) U/L Alkaline Phosphatase 62 (38-126) U/L Total Protein 7.9 (6.3-8.2) g/dL Albumin 4.7 (3.5-5.0) g/dL Amylase 77 (30-110) U/L Lipase 337 H (23-300) U/L Disposition Clinical Impression: Melena Disposition: HOME SELF-CARE Condition: Good Instructions (If sedation given, give patient instructions): Melena (ED) Prescriptions: Famotidine [Pepcid] 20 mg PO BID #40 tablet Pantoprazole [Protonix] 40 mg PO DAILY #20 tab Is patient prescribed a controlled substance at d/c from ED?: No Referrals: Mary Kay Guzman MD [Primary Care Provider] - 1-2 days Queta Mathews MD [STAFF PHYSICIAN] - 1-2 days Time of Disposition: 16:35
[2024-08-01] MEDS: SODIUM CHLORIDE 0.9% 1,000 ML IV STA (15:06)
[2024-08-01] MEDS: PANTOPRAZOLE 40 MG/10 ML VIAL IVP STA (15:06)
[2024-08-01] MEDS: FAMOTIDINE 20 MG/2 ML VIAL IV STA (15:06)
--- NOTE | 2024-08-01 16:19 | CT ---
EXAMINATION TYPE: CT abdomen pelvis w con CT DLP: 1485.1 mGycm, Automated exposure control for dose reduction was used. DATE OF EXAM: 08/01/2024 4:13 PM COMPARISON: none CLINICAL INDICATION:Male, 39 years old with history of Melena; Melena, abdominal pain TECHNIQUE: Standard CT of the abdomen and pelvis following the administration of 100 cc of Isovue 3 00 IV contrast material. Coronal and sagittal reformats were performed. FINDINGS: LOWER CHEST: Visualized lungs are clear. Atrial septal occlusion device identified. ABDOMEN LIVER: Focal fatty infiltration adjacent to the falciform ligament in segment IVb GALLBLADDER AND BILE DUCTS: Unremarkable. PANCREAS: Unremarkable. SPLEEN: Scattered calcified granulomas. ADRENAL GLANDS: Unremarkable. KIDNEYS AND URETERS: No evidence of hydronephrosis or renal calculus. The kidneys enhance symmetrical ly. Contrast is demonstrated within both collecting systems on delayed phase. PELVIS BLADDER: Unremarkable REPRODUCTIVE: Unremarkable. ABDOMEN & PELVIS STOMACH AND BOWEL: Stomach and duodenum are unremarkable. The appendix is within normal limits. Scatt ered distal colonic diverticulosis without evidence for acute diverticulitis. No focal bowel wall thi ckening or surrounding inflammatory changes. No evidence of bowel obstruction. PERITONEUM: No evidence of pneumoperitoneum or free fluid. VASCULATURE: No evidence of aortic aneurysm. MUSCULOSKELETAL: No acute osseous abnormalities. Mild degenerative disc disease at L5-S1. LYMPH NODES: No evidence for lymphadenopathy. SOFT TISSUE/ABDOMINAL WALL: Tiny fat filled umbilical hernia. IMPRESSION: 1. No acute abdominal/pelvic process. 2. Colonic diverticulosis without evidence for acute diverticulitis. [facility], , 08/01/2024 4:17 PM
[2024-08-01 16:53] VITALS: BP 135/85; PULSE 88; RESP 18
== END 2024-08-01 16:52 | disposition home or self-care (01) ==
LOC: EC 12:33
DX: K92.1 Melena (principal); F17.290 Nicotine dependence, other tobacco product, uncomplicated
CPT/HCPCS: 36415; 93005; 80053; 82150; 83690; 85025; 85610; 85730; 82272; 74177; 99284; 96374; 96375; 96361; J3490; Q9967; J2470